=== PATIENT | female | born 1960 | race Caucasian/White ===

== ENCOUNTER 2023-05-14 16:48 | Emergency (ER) | payer BC, SELFPAY ==
[2023-05-14 17:12] VITALS: BP 129/82; PULSE 80; RESP 18; TEMP 36.8; O2SAT 97; BMI 23.6
--- NOTE | 2023-05-14 17:24 | ECG_ITS ---
[facility] Test Date: 2023-05-14 Pat Name: EZIO CEBALLOS Department: Room: - Gender: Female Medical Dosimetrist: : 1960 Requested By: Order Number: [id number] Reading MD: CYNDI MCGREGOR Measurements Intervals [place] Rate: 79 P: 44 AL: 180 QRS: 50 QRSD: 76 T: 63 QT: 378 QTc: 413 Interpretive Statements 1100 Sinus rhythm 8102 Low QRS voltage in chest leads 9120 atypical ECG No previous ECG available for comparison Electronically Signed On 05-14-2023 22:48:51 EST by CYNDI MCGREGOR
--- NOTE | 2023-05-14 17:26 | ED.GENADUL1 ---
HPI - General Adult General Chief complaint: Neuro Symptoms/Deficit Stated complaint: low calcium Time Seen by Provider: 05/14/23 17:17 Source: patient Mode of arrival: Wheelchair Limitations: physical limitation History of Present Illness HPI narrative: 62-year-old female presents for tingling to her face hands and feet. She believes it might be from hypocalcemia. Last week her calcium was 7.2. She states her calcium always runs low, she had thyroid surgery years ago. She takes a calcium supplement and was taking some extra. No fever or vomiting. Related Data Allergies Allergy/AdvReac Type Severity Reaction Status Date / Time morphine AdvReac Severe Vomiting Verified 05/14/23 17:16 Penicillins AdvReac Hives Verified 05/14/23 17:16 Review of Systems ROS Narrative A ten point review of systems is negative except as noted above. PFSH PFSH Social History Smoking status: Never smoker Exam Narrative Exam Narrative: Nurses note and vital signs reviewed and patient is not hypoxic. General: The patient appears well and in no apparent distress. Patient is resting comfortably on cart. Skin: Warm, dry, no pallor noted. There is no rash noted. Head: Normocephalic, atraumatic Eye: Normal conjunctiva, no drainage Ears, Nose, Mouth, and Throat: oral mucosa is moist. Nares patent. Cardiovascular: Regular Rate and Rhythm Respiratory: Patient is in no distress, no accessory muscle use, lungs are clear to auscultation, no wheezing, rales or rhonchi Back: non-tender GI: Soft and nontender Musculoskeletal: The patient has no evidence of calf tenderness, no pitting edema, symmetrical pulses noted bilaterally Neurological: A&O x4, normal speech Psychiatric: Cooperative Constitutional Vital Signs, click to edit/add: Last Vital Signs Temp 98.2 F 05/14/23 17:12 Pulse 80 05/14/23 17:12 Resp 18 05/14/23 17:12 BP 129/82 05/14/23 17:12 Pulse Ox 97 05/14/23 17:12 O2 Del Method Room Air 05/14/23 17:12 Course Vital Signs Vital signs: Vital Signs Temperature 98.2 F 05/14/23 17:12 Pulse Rate 80 05/14/23 17:12 Respiratory Rate 18 05/14/23 17:12 Blood Pressure 129/82 05/14/23 17:12 Pulse Oximetry 97 05/14/23 17:12 Oxygen Delivery Method Room Air 05/14/23 17:12 Temperature 98.2 F 05/14/23 17:12 Pulse Rate 80 05/14/23 17:12 Respiratory Rate 18 05/14/23 17:12 Blood Pressure 129/82 05/14/23 17:12 Pulse Oximetry 97 05/14/23 17:12 Oxygen Delivery Method Room Air 05/14/23 17:12 Medical Decision Making MDM Narrative Medical decision making narrative: The patient is hypocalcemic and was ordered IV calcium. The patient is signed out to Dr. Post at change of shift. Lab Data Lab results reviewed: Yes I reviewed the patient's lab results Labs: Lab Results 05/14/23 Range/Units 17:30 WBC 5.8 (4.0-11.0) 10^3/uL RBC 4.04 L (4.20-5.40) 10^6/uL Hgb 11.3 L (12.0-16.0) g/dL Hct 37.3 (36.0-48.0) % MCV 92.3 (81.0-99.0) fL MCH 28.0 (26.7-34.0) pg MCHC 30.3 (29.9-35.2) g/dL RDW 13.7 (11.0-15.0) % Plt Count 263 (150-450) 10^3/uL MPV 9.3 L (9.5-13.5) fL Neut % (Auto) 60.8 (43.0-75.0) % Lymph % (Auto) 27.3 (20.5-60.0) % Patrick % (Auto) 8.8 (1.7-12.0) % Eos % (Auto) 2.1 (0.9-7.0) % Baso % (Auto) 0.5 (0.2-2.0) % Neut # (Auto) 3.5 (1.4-6.5) 10^3/uL Lymph # (Auto) 1.6 (1.2-3.8) 10^3/uL Patrick # (Auto) 0.5 (0.3-0.8) 10^3/uL Eos # (Auto) 0.1 (0.0-0.7) 10^3/uL Baso # (Auto) 0.0 (0.0-0.1) 10^3/uL Abs Immat Gran (auto) 0.03 (0.00-0.03) 10^3/uL Imm/Tot Granulo (auto) 0.5 (0.0-0.5) % Sodium 145 (136-145) mmol/L Potassium 5.7 H (3.5-5.1) mmol/L Chloride 109 H (98-107) mmol/L Carbon Dioxide 30.1 (21.0-32.0) mmol/L Anion Gap 11.6 BUN 37.0 H (7.0-18.0) mg/dL Creatinine 1.89 H (0.55-1.02) mg/dL Est GFR ( Amer) 32 L (>=60) Est GFR (Non-Af Amer) 27 L (>=60) BUN/Creatinine Ratio 19.6 Glucose 139 H (74-106) mg/dL Calcium 7.5 L (8.5-10.1) mg/dL Discharge Plan Discharge Patient Disposition: Still a Patient
[2023-05-14 17:47] LABS: Basophils Percent Auto 0.5 % (0.2-2.0); Eosinophils Absolute Auto 0.1 10^3/uL (0.0-0.7); Eosinophils Percent Auto 2.1 % (0.9-7.0); Hematocrit 37.3 % (36.0-48.0); Hemoglobin 11.3 g/dL (12.0-16.0); Immature Granulocytes Abs Auto 0.03 10^3/uL (0.00-0.03); Immature Granulocytes Pct Auto 0.5 % (0.0-0.5); Lymphocytes Absolute Auto 1.6 10^3/uL (1.2-3.8); Lymphocytes Percent Auto 27.3 % (20.5-60.0); Mean Corpuscular HGB Conc 30.3 g/dL (29.9-35.2); Mean Corpuscular Volume 92.3 fL (81.0-99.0); Mean Platelet Volume 9.3 fL (9.5-13.5); Monocytes Absolute Auto 0.5 10^3/uL (0.3-0.8); Monocytes Percent Auto 8.8 % (1.7-12.0); Neutrophils Absolute Auto 3.5 10^3/uL (1.4-6.5); Neutrophils Percent Auto 60.8 % (43.0-75.0); Platelet Count 263 10^3/uL (150-450); Red Blood Count 4.04 10^6/uL (4.20-5.40); Red Cell Distribution Width 13.7 % (11.0-15.0); White Blood Count 5.8 10^3/uL (4.0-11.0)
[2023-05-14 18:03] LABS: Anion Gap 11.6; BUN Creatinine Ratio 19.6; Calcium 7.5 mg/dL (8.5-10.1); Carbon Dioxide 30.1 mmol/L (21.0-32.0); Chloride 109 mmol/L (98-107); Estimated GFR (African America 32 (>=60); Estimated GFR (Non-African Ame 27 (>=60); Glucose 139 mg/dL (74-106); Potassium 5.7 mmol/L (3.5-5.1); Sodium 145 mmol/L (136-145)
[2023-05-14] MEDS: CALCIUM GLUC IN NACL, ISO-OSM 1 GM/50 ML PLAST..BAG IV ×2 (18:33→19:04)
[2023-05-14 19:08] VITALS: BP 124/81; PULSE 71; RESP 16; O2SAT 96
[2023-05-14 19:49] LABS: Alanine Aminotransferase 52 U/L (14-59); Albumin Globulin Ratio 0.8; Albumin Level 3.1 g/dL (3.4-5.0); Alkaline Phosphatase 81 U/L (46-116); Aspartate Amino Transferase 53 U/L (15-37); Bilirubin Direct 0.1 mg/dL (0.0-0.2); Bilirubin Total 0.4 mg/dL (0.2-1.0); Globulin 3.9 g/dL
[2023-05-14 21:30] VITALS: BP 127/75; PULSE 75; RESP 16; O2SAT 99
== END 2023-05-14 21:30 | disposition home or self-care (01) ==
PROVIDERS: Emergency Medicine; Emergency Provider Internal Medicine; PCP Family Medicine
DX: E83.51 Hypocalcemia (principal); Z79.899 Other long term (current) drug therapy
CPT/HCPCS: 36415; 80048; 80076; 85025; 93005; 96365; 96366; 99284; J0613

== ENCOUNTER 2023-05-15 14:15 | Emergency (ER) | payer BC, SELFPAY ==
[2023-05-15 14:20] VITALS: BP 117/67; PULSE 83; RESP 16; TEMP 36.6; O2SAT 100; BMI 23.6
--- NOTE | 2023-05-15 14:27 | ED.MEDCLEAR1 ---
HPI - Medical Clearance General Chief complaint: Medical Clearance Stated complaint: BLOOD PROBLEMS Time Seen by Provider: 05/15/23 14:18 Source: patient Mode of arrival: walk-in Limitations: no limitations History of Present Illness HPI Narrative: Patient is a 62-year-old female with a history of thyroidectomy who takes chronic calcium supplementation presents to be reevaluated in the emergency department Cramping in her hands and tingling in her lips consistent with previous episodes of hypocalcemia. She received IV calcium supplementation in the ER with improvement of symptoms and was discharged home. She was apparently instructed by the nighttime emergency room physician to come back to the ER today for evaluation. She states she still has minimal tingling in the lips but all of her symptoms have improved since yesterday. Related Information Home Medications Medication Instructions Recorded Confirmed bupropion HCl 150 mg 24 hr tablet, 450 mg PO DAILY 05/15/23 05/15/23 extended release clonazepam 0.5 mg tablet 0.5 mg PO TID 05/15/23 05/15/23 dapagliflozin propanediol 10 mg 10 mg PO DAILY 05/15/23 05/15/23 tablet (Farxiga) lemborexant 10 mg tablet (Dayvigo) 10 mg PO BEDTIME 05/15/23 05/15/23 levothyroxine 175 mcg tablet 175 mcg PO DAILY 05/15/23 05/15/23 lisinopril 10 1 tab PO DAILY 05/15/23 05/15/23 mg-hydrochlorothiazide 12.5 mg tablet olanzapine 2.5 mg tablet 2.5 mg PO DAILY 05/15/23 05/15/23 venlafaxine 75 mg capsule,extended 75 mg PO DAILY 05/15/23 05/15/23 release 24 hr vortioxetine 20 mg tablet 20 mg PO DAILY 05/15/23 05/15/23 (Trintellix) Allergies Allergy/AdvReac Type Severity Reaction Status Date / Time morphine AdvReac Severe Vomiting Verified 05/14/23 17:16 Penicillins AdvReac Hives Verified 05/14/23 17:16 Review of Systems ROS Constitutional Denies: fever or chills Ears, nose, mouth, and throat Denies: throat pain Cardiovascular Denies: chest pain Respiratory Denies: shortness of breath Gastrointestinal Denies: nausea or vomiting Musculoskeletal Denies: back pain Integumentary/Breast Denies: rash Neurological Denies: headache Hematologic/Lymphatic Denies: easy bruising or easy bleeding PFSH PFSH Social History Smoking status: Never smoker Exam Narrative Exam Narrative: Gen.: Awake, alert, in no distress Head: Normocephalic, atraumatic ENT: Moist mucous membranes Respiratory: No respiratory distress, lungs clear bilaterally Cardio: Regular rate and rhythm Extremities: Moves extremities equally Psych: Normal mood and affect Neuro: No focal neuro deficit Skin: Warm, dry, intact Constitutional Vital Signs, click to edit/add: Last Vital Signs Temp 97.8 F 05/15/23 14:20 Pulse 83 05/15/23 14:20 Resp 16 05/15/23 14:20 BP 117/67 05/15/23 14:20 Pulse Ox 100 05/15/23 14:20 O2 Del Method Room Air 05/15/23 14:20 Course Vital Signs Vital signs: Vital Signs Temperature 97.8 F 05/15/23 14:20 Pulse Rate 83 05/15/23 14:20 Respiratory Rate 16 05/15/23 14:20 Blood Pressure 117/67 05/15/23 14:20 Pulse Oximetry 100 05/15/23 14:20 Oxygen Delivery Method Room Air 05/15/23 14:20 Temperature 97.8 F 05/15/23 14:20 Pulse Rate 83 05/15/23 14:20 Respiratory Rate 16 05/15/23 14:20 Blood Pressure 117/67 05/15/23 14:20 Pulse Oximetry 100 05/15/23 14:20 Oxygen Delivery Method Room Air 05/15/23 14:20 MDM - Medical Clearance MDM Narrative Medical decision making narrative: Repeat calcium level is 7.8. Patient is still having mild tingling of the lips and was treated again with calcium gluconate IV. Continue calcium supplementation for home and follow-up with PCP. Return to the ER only if symptoms change or worsen. Medical Records Attestation: I reviewed the patient's medical records. Lab Data Attestation: I reviewed the patient's lab results. Labs: Lab Results 05/15/23 Range/Units 14:25 Sodium 148 H (136-145) mmol/L Potassium 4.7 (3.5-5.1) mmol/L Chloride 111 H (98-107) mmol/L Carbon Dioxide 28.7 (21.0-32.0) mmol/L Anion Gap 13.0 BUN 31.0 H (7.0-18.0) mg/dL Creatinine 1.24 H (0.55-1.02) mg/dL Est GFR ( Amer) 53 L (>=60) Est GFR (Non-Af Amer) 44 L (>=60) BUN/Creatinine Ratio 25.0 Glucose 83 (74-106) mg/dL Calcium 7.8 L (8.5-10.1) mg/dL Total Bilirubin 0.3 (0.2-1.0) mg/dL AST 40 H (15-37) U/L ALT 53 (14-59) U/L Alkaline Phosphatase 86 (46-116) U/L Total Protein 6.9 (6.4-8.2) g/dL Albumin 3.1 L (3.4-5.0) g/dL Globulin 3.8 g/dL Albumin/Globulin Ratio 0.8 Discharge Plan Discharge Chief Complaint: Medical Clearance Clinical Impression: Hypocalcemia Patient Disposition: Home, Self-Care Time of Disposition Decision: 15:00 Condition: Good Prescriptions / Home Meds: No Action bupropion HCl 150 mg tablet extended release 24 hr 450 mg PO DAILY clonazepam 0.5 mg tablet 0.5 mg PO TID dapagliflozin propanediol [Farxiga] 10 mg tablet 10 mg PO DAILY Dayvigo 10 mg tablet 10 mg PO BEDTIME levothyroxine 175 mcg tablet 175 mcg PO DAILY lisinopril-hydrochlorothiazide 10-12.5 mg tablet 1 tab PO DAILY venlafaxine 75 mg capsule,extended release 24hr 75 mg PO DAILY Trintellix 20 mg tablet 20 mg PO DAILY olanzapine 2.5 mg tablet 2.5 mg PO DAILY Instructions: Hypocalcemia (ED) Stand Alone Forms: Portal Instructions Referrals: LUCIA HUITRON [Primary Care Provider] - 1 week
--- OUTSIDE RECORDS SUMMARY | 2023-05-15 14:29 | XMS_ITS | CCD ---
Author Name Unknown Address [address] [place] [address] Organization [facility] Care Team Providers Care 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 Name Role Phone NIVIA ROSE Admitting Unavailable MILTON, NIVIA Attending Unavailable MISC, DOCTOR Primary Care Unavailable MILTONNIVIA JUAREZ Admitting Unavailable MILTON, NIVIA Attending Unavailable NIVIA ROSE Consulting Unavailable Val Campuzano Unavailable Lei Wells Unavailable DO Severiano Huitron Primary Care Provider [phone] MD Elizabeth Arora Attending Provider Elizabeth Arora Unavailable Severiano Huitron Primary Care Unavailable Will Jackson Attending Unavailab Will Smiley Admitting Unavailab Severiano Julian DO Primary Care Provider [phone] Neeta Fatima DO Unavailable EDWIN RODRIGUEZ Attending Unavailable EDWIN RODRIGUEZ Attending Unavailable SEVERIANO HUITRON Referring Unavailable Allergies Allergy Classification Reported Allergen(s) Allergy Type Date of Onset Reaction(s) Facility (20 sources) Morphine Drug Allergy 11-06-19 18 GI intolerance, Itching, Rash [facility] (19 sources) Penicillin G Drug Allergy 05-13-19 24 Unknown, Abdominal Pain [facility] (19 sources) Penicillins Propensity to adverse reactions 05-13-19 24 Unknown, Abdominal Pain [facility] (17 sources) zolpidem Drug Allergy 05-13-19 24 depression [facility] (1 source) Morphine Drug Allergy 10-10-19 [facility] (1 source) Penicillin Drug Allergy 10-10-19 [facility] (1 source) Penicillins Drug allergy (disorder) 10-10-19 [facility] (1 source) zolpidem Drug Allergy 10-10-19 [facility] (1 source) Meperidine Drug Allergy 01-08-20 [facility] (1 source) Penicillins Drug Allergy 11-06-19 18 Rash [facility] (1 source) Propoxyphene Drug Allergy 01-08-20 [facility] Medications Current Medications Medication Drug Class(es) Dates Sig (Normalized) Sig (Original) acetaminophen 325 mg oral tablet (1 source) take 1 tablet by mouth every four hours as needed acetaminophen (Tylenol) 325 MG tablet Take 325 mg by mouth every 4 (four) hours if needed. 0 Active 24 hr buPROPion hydrochloride 150 mg extended release oral tablet (20 sources) Aminoketone Start: 05-13-2023 take 1 tablet by mouth once daily in the morning Bupropion Hcl (Wellbutrin Xl) 150 mg tablet extended release 24 hr Active 150 MG PO Daily May 13, 2023 12:00am FreeTextSi tablet in the morning Orally Once a day; Note: Source Status: Taking; Refills: 0; Provider: Russell Odom take 1 tablet by caroline th every twenty-four hours in the morning buPROPion XL (Wellbutrin XL) 150 MG 24 h r tablet Take 150 mg by mouth in the morning. 0 Active take 1 tablet by caroline th every twenty-four hours in the morning buPROPion XL (Wellbutrin XL) 300 MG 24 h r tablet Take 300 mg by mouth in the morning. 0 Active take 1 tablet by caroline th every twenty-four hours Wellbutrin XL 150 MG 1 tablet in the morning Orally Once a day for 90 days Active take 1 tablet by caroline th every twenty-four hours Wellbutrin XL 300 MG 1 tablet in the morning Orally Once a day for 90 days Active calcium carbonate 1500 mg oral tablet (1 source) take 2 tablets by mouth in the morning, then take 2 tablets by mouth in the evening, then take 2 tablets by mouth at bedtime calcium carbonate 1500 (600 Ca) MG tablet Take 2 tablets by mouth in the morning and 2 tablets in the evening and 2 tablets before bedtime. 0 Active calcium carbonate 1500 mg / cholecalciferol 200 unt oral tablet (19 sources) Vitamin D Start: 05-13-2023 take 1 tablet by mouth twice daily Calcium Carbonate-Vitamin D3 Active 1 TAB PO Twice daily May 13, 2023 12:00am FreeTextSi tablet Orally Twice a day; Note: Source Status: Taking; Provider: Maite Johnson ( ) take 1 tablet by mouth twice odilon ly Calcium + D 600-200 MG-UNIT 1 tablet Orally Twice a day Active take 1 tablet by mouth every twe lve hours Calcium + D 600-200 MG-UNIT 1 tablet Orally Twice a day Active clonazePAM 0.5 mg oral tablet (20 sources) Benzodiazepine Start: 05-13-2023 take 1.5 tablets by mouth once daily Clonazepam Active 1.5 TAB PO Daily May 13, 2023 12:00am FreeTextSi.5 tablet Orally Once a day; Note: Source Status: [id number]; Refills: 0; Provider: Russell Odom Start: 10-01-2021 take 1.5 tablets by mouth every twenty-four hours KlonoPIN 0.5 MG 1.5 tablet Orally Once a day for 90 days f41.1 Sep, Active Start: 09-03-2021 take 1.5 tablets by mouth every twenty-four hours KlonoPIN 0.5 MG 1.5 tablet Orally Once a day for 30 days f41.1 Aug, Active Start: 08-02-2021 take 1.5 tablets by mouth every twenty-four hours KlonoPIN 0.5 MG 1.5 tablet Orally Once a day for 30 days f41.1 July, Active Start: 06-06-2021 take 1.5 tablets by mouth every twenty-four hours KlonoPIN 0.5 MG 1.5 tablet Orally Once a day for 30 days f41.1 May, Active Start: 05-23-2021 take 1.5 tablets by mouth every twenty-four hours KlonoPIN 0.5 MG 1.5 tablet Orally Once a day for 30 days f41.1 May, Active Start: 04-12-2021 take 1.5 tablets by mouth every twenty-four hours KlonoPIN 0.5 MG 1.5 tablet Orally Once a day for 30 days f41.1 Mar, Active Start: 03-05-2021 take 1.5 tablets by mouth every twenty-four hours KlonoPIN 0.5 MG 1.5 tablet Orally Once a day for 30 days f41.1 Feb, Active Start: 02-06-2021 take 1.5 tablets by mouth every twenty-four hours KlonoPIN 0.5 MG 1.5 tablet Orally Once a day for 30 days f41.1 Jan, Active Start: 12-07-2020 take 1.5 tablets by mouth every twenty-four hours KlonoPIN 0.5 MG 1.5 tablet Orally Once a day for 30 days f41.1 Nov, Active take 1 tablet by caroline th in the morning, then take 1 tablet by mouth in the evening, then take 1 tablet by mouth at bedtime clonazePAM (KlonoPIN) 0.5 MG tablet Take 0.5 mg by mouth in the morning and 0.5 mg in the evening and 0.5 mg before bedtime. 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 90 tablet 3 01/17/2023 Active Farxiga 10 MG Or ally Active dexamethasone phosphate 4 mg/ml injectable solution (2 sources) Corticosteroid Start: 05-13-2023 Dexamethasone Sodium Phosphate Active 2 MG TRANSDERML May 13, 2023 12:00am FreeTextSi mL Iontophoresis 2-3 x per week as directed by therapy; Note: Source Status: Start; Refills: 0; Qty: 30 Milliliter; Provider: Maite Brewer Start: 10-09-2022 Dexamethasone Sodium Phosphate 4 MG/ML 1 mL Iontophoresis 2-3 x per week as directed by therapy for 30 days Sep, Active ferrous sulfate 325 mg oral tablet (19 sources) Start: 07-12-2019 Ferrous Sulfat e CR 325 MG as directed Orally once a day for 30 days Jun, Active take 1 tablet by mouth at [place] ferrous sulfate 325 (65 Fe) MG tablet Take 325 mg by mouth in the morning. Take with meals. 0 Active hydroCHLOROthiazide 12.5 mg / lisinopril 10 mg oral tablet (20 sources) Thiazide Diuretic, Angiotensin Converting Enzyme Inhibitor Start: 05-13-2023 take 1 tablet by mouth once daily Lisinopril-Hydrochlorothiazide Active 1 TAB PO Daily May 13, 2023 12:00am FreeTextSi tablet Orally Once a day; Note: Source Status: Taking; Provider: Maite Johnson ( ) Start: 02-27-2023 End: 02-27-2024 take 1 tablet by mouth in the morning lisinopril-hydroCHLOROthiazide 10-12.5 M G tablet Indications: Primary hypertension (CMS/HCC) Take 1 tablet by mouth in the morning. 30 tablet 11 02/27/2023 02/27/2024 Active take 1 tablet by caroline th every twenty-four hours Lisinopril-hydroCHLOROthiazide 10-12.5 M G 1 tablet Orally Once a day Active lemborexant 10 mg oral tablet (19 sources) Start: 10-01-2021 take 1 tablet by caroline th every twenty-four hours DayVigo 10 MG 1 tablet at bedtime Orally Once a day for 90 days g47.0 Sep, Active Start: 09-03-2021 take 1 tablet by caroline th every twenty-four hours DayVigo 10 MG 1 tablet at bedtime Orally Once a day for 30 days g47.0 Aug, Active Start: 08-02-2021 take 1 tablet by caroline th every twenty-four hours DayVigo 10 MG 1 tablet at bedtime Orally Once a day for 30 days g47.0 July, Active Start: 06-06-2021 take 1 tablet by caroline th every twenty-four hours DayVigo 10 MG 1 tablet at bedtime Orally Once a day for 30 days g47.0 May, Active Start: 05-23-2021 take 1 tablet by caroline th every twenty-four hours DayVigo 10 MG 1 tablet at bedtime Orally Once a day for 30 days g47.0 May, Active Start: 04-12-2021 take 1 tablet by caroline th every twenty-four hours DayVigo 10 MG 1 tablet at bedtime Orally Once a day for 30 days g47.0 Mar, Active Start: 03-05-2021 take 1 tablet by caroline th every twenty-four hours DayVigo 10 MG 1 tablet at bedtime Orally Once a day for 30 days g47.0 Feb, Active Start: 02-06-2021 take 1 tablet by caroline th every twenty-four hours DayVigo 10 MG 1 tablet at bedtime Orally Once a day for 30 days g47.0 Jan, Active Start: 12-07-2020 take 1 tablet by caroline th every twenty-four hours DayVigo 10 MG 1 tablet at bedtime Orally Once a day for 30 days g47.0 Nov, Active Lemborexant (1 source) Start: 05-13-2023 take 1 tablet by mouth once daily at bedtime Lemborexant Active 10 MG PO Daily at bedtime May 13, 2023 12:00am FreeTextSi tablet at bedtime Orally Once a day; Note: Source Status: Rlpaxsw02.0; Refills: 0; Provider: Russell Odom levothyroxine sodium 0.175 mg oral tablet (20 sources) l-Thyroxi ne Start: 05-13-2023 take 1 tablet by mouth once daily Levothyroxine (Synthroid) 175 mcg tablet Active 175 MCG PO Daily May 13, 2023 12:00am FreeTextSi tablet Orally Once a day; Note: Source Status: Taking; Provider: Maite Johnson ( ) Start: 10-07-2022 take 1 tablet by caroline th once daily in the morning levothyroxine (Synthroid, Levoxyl) 175 MCG tablet Indications: Other specified hypothyroidism (CMS/HCC) TAKE 1 TABLET BY MOUTH EVERY MORNING ON AN EMPTY STOMACH 90 tablet 3 10/07/2022 Active take 1 tablet by caroline th every twenty-four hours Synthroid 175 MCG 1 tablet Orally Once a day Active lidocaine 0.05 mg/mg medicated patch (1 source) Antiarrhythmic, Amide Local Anesthetic Start: 05-13-2023 apply 1 dose topically once daily Lidocaine Active 1 PATCH TOPICAL Daily May 13, 2023 12:00am leave on most painful area for up to 12 hrs liraglutide (18 sources) GLP-1 Receptor Agonist Victoza 18mg/3ml injection as directed 1.2 Active Mounjaro 5 MG/0.5ML solution pen-injector (1 source) Start: 01-17-2023 Mounjaro 5 MG/0.5ML solution pen-injector Indications: 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 6 mL 3 01/17/2023 Active naproxen 375 mg delayed release oral tablet (6 sources) Nonsteroidal Anti-inflammatory Drug Start: 05-13-2023 take 1 tablet by mouth every twelve hours Naproxen (Ec-Naproxen) 375 mg tablet,delayed release (DR/EC) Active 375 MG PO Every 12 hours May 13, 2023 12:00am Naproxen takes r vishal due to bypass sx Not-Taking nystatin [id number] unt/ml / triamcinolone acetonide 1 mg/ml topical cream (1 source) Polyene Antifungal, Corticosteroid Start: 09-10-2022 nystatin-triamcinolone (Mycolog II) cream Indications: Type 2 diabetes mellitus with diabetic polyneuropathy, without long-term current use of insulin ([facility]) Apply topically every 12 (twelve) hours. 15 g 3 09/10/2022 Active OLANZapine 2.5 mg oral tablet (20 sources) Atypical Antipsychotic Start: 05-13-2023 take 0.5 tablet by mouth once daily Olanzapine Active 2.5 MG PO Daily May 13, 2023 12:00am FreeTextSi/2 tablet Orally Once a day; Note: Source Status: Taking; Refills: 0; Provider: Russell Odom take 1 tablet by mouth at bedtim e OLANZapine (ZyPREXA) 2.5 MG tablet Take 1 tablet by mouth at bedtime. 0 Active take 0.5 tablet by mouth once da aida OLANZapine 2.5 MG 1/2 tablet Orally Once a day for 90 days Active predniSONE 5 mg oral tablet (2 sources) Start: 05-13-2023 Prednisone Act alley 2.5 MG PO May 13, 2023 12:00am FreeTextSig: TAKE 4 PILLS BY MOUTH X 2 DAYS, TAKE 3 PILLS BY MOUTH X 2 DAYS, TAKE 2 PILLS BY MOUTH X 2 DAYS, TAKE 1 PILL BY MOUTH X 1 DAY Orally Daily; Note: Source Status: Start; Refills: 0; Qty: 19 Tablet; Provider: Maite Brewer Start: 10-09-2022 predniSONE 5 M G TAKE 4 PILLS BY MOUTH X 2 DAYS, TAKE 3 PILLS BY MOUTH X 2 DAYS, TAKE 2 PILLS BY MOUTH X 2 DAYS, TAKE 1 PILL BY MOUTH X 1 DAY Orally Daily for 7 days Sep, Active 24 hr venlafaxine 75 mg extended release oral capsule (20 sources) Serotonin and Norepinephrine Reuptake Inhibitor Start: 05-13-2023 take 1 capsule by mouth once daily at mealtime Venlafaxine (Effexor Xr) 75 mg capsule,extended release 24hr Active 75 MG PO Daily May 13, 2023 12:00am FreeTextSi capsule with food Orally Once a day; Note: Source Status: Taking; Refills: 0; Provider: Russell Odom take 1 capsule by [facility] every twenty-four hours in the morning venlafaxine XR (Effexor XR) 75 MG 24 hr capsule Take 75 mg by mouth in the morning. Do not crush or chew. . 0 Active take 1 capsule by mo uth every twenty-four hours Effexor XR 75 MG 1 capsule with food Orally Once a day for 90 days Active verapamil hydrochloride 80 mg oral tablet (19 sources) Calcium Channel Ofe take 1 tablet by mouth in the morning verapamil (Calan) 80 MG tablet Take 80 mg by mouth in the morning and 80 mg in the evening. 0 Active vortioxetine 20 mg oral tablet (20 sources) Start: take 1 tablet by mouth once daily Vortioxetine Active 1 TAB PO Daily May 13, 2023 12:00am FreeTextSi tablet Orally Once a day; Note: Source Status: Taking; Refills: 0; Provider: Russell Odom take 1 tablet by mouth once judson y Trintellix 20 MG tablet Take 1 tablet by mouth 1 (one) time each day at the same time. 0 Active Completed/Discontinued Medications Medication Drug Class(es) Dates Sig (Normalized) Sig (Original) Cortisporin 3.3-3-10-0.5 mg/ml (13 sources) Start: 01-30-2020 Cortisporin 3.3-3-10-0.5 mg/ml 4 drops into affected ear Otic Twice a day for 7 days Jan, Not-Taking Start: 01-30-2020 Cortisporin 3. 3-3-10-0.5 mg/ml 4 drops into affected ear Otic Twice a day for 7 days Jan, Active Start: 01-30-2020 triamcinolone acetonide 40 mg/ml injectable suspension (20 sources) Corticosteroid Start: 01-02-2022 Kenalog-40 Dec, 20 mg Start: 10-29-2016 Kenalog -40 mg Oct, 1 mL Problems Active Problems Problem Classification Problem Date Documented Date Episodic/Chronic Anxiety disorders (20 sources) Anxiety state; Translations: [Generalized anxiety disorder] Onset: 03-24-2017 09-03-2022 Chronic Chronic kidney disease (19 sources) Chronic kidney disease stage 3; Translations: [Chronic kidney disease, stage 3 (moderate)] Onset: 07-03-2015 09-03-2022 Chronic Complications of surgical procedures or medical care (19 sources) Postoperative hypothyroidism; Translations: [Postprocedural hypothyroidism] Onset: 06-20-2016 09-03-2022 Chronic Complications of surgical procedures or medical care (18 sources) Postoperative wound infection; Translations: [Infection following a procedure, initial encounter] Episodic Diabetes mellitus with complications (20 sources) Type 2 diabetes mellitus; Translations: [Type 2 diabetes mellitus with mild nonproliferative diabetic retinopathy without macular edema] Onset: 03-03-2015 Resolved: 01-17-2023 09-03-2022 Chronic Diabetes mellitus without complication (1 source) Diabetes mellitus; Translations: [Type 2 diabetes mellitus without complications] 05-13-2023 Chronic Headache; including migraine (19 sources) Refractory migraine; Translations: [Migraine, unspecified, intractable, without status migrainosus] Onset: 09-03-2022 09-03-2022 Chronic Immunizations and screening for infectious disease (4 sources) Encounter for screening for other viral diseases; Translations: [ENC SCREENING FOR OTH VIRAL DZ] Onset: 12-01-2019 Episodic Miscellaneous mental health disorders (18 sources) Primary insomnia; Translations: [Primary insomnia] Chronic Mood disorders (20 sources) Moderate recurrent major depression; Translations: [Major depressive disorder, recurrent, moderate] Onset: 02-06-2021 Resolved: 09-03-2021 Chronic Osteoarthritis (20 sources) Osteoarthritis of left knee joint; Translations: [Unilateral primary osteoarthritis, left knee] Onset: 08-21-2017 Chronic Other connective tissue disease (19 sources) History of total knee arthroplasty; Translations: [Presence of left artificial knee joint] Onset: 09-03-2022 09-03-2022 Chronic Other connective tissue disease (1 source) Artificial knee joint present; Translations: [Presence of unspecified artificial knee joint] Onset: 12-08-2017 09-03-2022 Chronic Other connective tissue disease (5 sources) Radial styloid tenosynovitis [de Quervain]; Translations: [Radial styloid tenosynovitis of both hands] Episodic Other connective tissue disease (3 sources) Pain in left hand Episodic Other connective tissue disease (3 sources) Pain in right hand Episodic Other ear and sense organ disorders (1 source) Sensorineural hearing loss, bilateral; Translations: [Sensorineural hearing loss, bilateral] Onset: 02-16-2020 09-03-2022 Chronic Other nervous system disorders (19 sources) Chronic pain; Translations: [Other chronic pain] Onset: 08-21-2017 09-03-2022 Chronic Other upper respiratory disease (1 source) Chronic rhinitis; Translations: [Chronic rhinitis] Onset: 02-16-2020 09-03-2022 Chronic Other upper respiratory infections (18 sources) Acute sinusitis; Translations: [Acute sinusitis] Episodic Residual codes; unclassified (18 sources) Preoperative state; Translations: [Pre-operative examination] Episodic Residual codes; unclassified (18 sources) Insomnia; Translations: [Insomnia, unspecified] Episodic Thyroid disorders (20 sources) Hypothyroidism; Translations: [Unspecified hypothyroidism] Onset: 06-01-2010 09-03-2022 Chronic Past or Other Problems Problem Classification Problem Date Documented Da te Episodic/Chronic Other ear and sense organ disorders (1 source) Bilateral earache; Translations: [Otalgia, bilateral] Onset: 09-03-2022 09-03-2022 Episodic Results Test Name Value Interpretation Reference Range Facil ity Complete Blood Count with Au to Diffon 05-21-2021 Basophils (Bld) [#/Vol] 0.05 10*3/uL Normal 0.00-0.20 [facility] Specialist Comment on above: Performed By: #### C BCAD, CMP, LIPD, FT4, TSH #### [facility] [address], [place] [id number] Basophils/100 WBC (Bld) 0.7 % Normal [facility] [employer] Teacher Comment on above: Performed By: #### C BCAD, CMP, LIPD, FT4, TSH #### [facility] [address], [place] [id number] Eosinophils (Bld) [#/Vol] 0.23 10*3/uL Normal 0.02-0.50 [facility] Specialist Comment on above: Performed By: #### C BCAD, CMP, LIPD, FT4, TSH #### [facility] [address], [place] [id number] Eosinophils/100 WBC (Bld) 3.2 % Normal [facility] [employer] Teacher Comment on above: Performed By: #### C BCAD, CMP, LIPD, FT4, TSH #### [facility] [address], [place] [id number] Erythrocyte distribution width (RBC) [Ratio] 13.6 % Normal 11.0-15.0 [facility] Specialist Comment on above: Performed By: #### C BCAD, CMP, LIPD, FT4, TSH #### [facility] [address], [place] [id number] Hematocrit (Bld) [Volume fraction] 44.7 % Normal 35.0-47.0 [facility] Specialist Comment on above: Performed By: #### C BCAD, CMP, LIPD, FT4, TSH #### [facility] [address], [place] [id number] Hemoglobin (Bld) [Mass/Vol] 13.9 g/dL Normal 11.6-15.5 [facility] Specialist Comment on above: Performed By: #### C BCAD, CMP, LIPD, FT4, TSH #### [facility] [address], [place] [id number] Lymphocytes (Bld) [#/Vol] 1.2 10*3/uL Normal 0.9-3.9 [facility] Specialist Comment on above: Performed By: #### C BCAD, CMP, LIPD, FT4, TSH #### [facility] [address], [place] [id number] Lymphocytes/100 WBC (Bld) 16.2 % Normal [facility] Specialist Comment on above: Performed By: #### C BCAD, CMP, LIPD, FT4, TSH #### [facility] [address], [place] [id number] MCH (RBC) [Entitic mass] 27.3 pg Normal 27.0-33.0 [facility] Specialist Comment on above: Performed By: #### C BCAD, CMP, LIPD, FT4, TSH #### [facility] [address], [place] [id number] MCHC (RBC) [Mass/Vol] 31.1 g/dL Low 32.0-36.0 [facility] Specialist Comment on above: Performed By: #### C BCAD, CMP, LIPD, FT4, TSH #### [facility] [address], [place] [id number] MCV (RBC) [Entitic vol] 88 fL Normal 80-100 [facility] Specialist Comment on above: Performed By: #### C BCAD, CMP, LIPD, FT4, TSH #### [facility] [address], [place] [id number] Monocytes (Bld) [#/Vol] 0.4 10*3/uL Normal 0.2-0.9 [facility] Specialist Comment on above: Performed By: #### C BCAD, CMP, LIPD, FT4, TSH #### [facility] [address], [place] [id number] Monocytes/100 WBC (Bld) 6.1 % Normal [facility] Specialist Comment on above: Performed By: #### C BCAD, CMP, LIPD, FT4, TSH #### [facility] [address], [place] [id number] Neutrophils (Bld) [#/Vol] 5.3 10*3/uL Normal 1.5-7.8 [facility] Comment on above: Performed By: #### C BCAD, CMP, LIPD, FT4, TSH #### [facility] [address], [place] [id number] Neutrophils/100 WBC (Bld) 73.5 % Normal [facility] Specialist Comment on above: Performed By: #### C BCAD, CMP, LIPD, FT4, TSH #### [facility] [address], [place] [id number] Platelet mean volume (Bld) [Entitic vol] 9.90 fL Normal 7.50-12.50 [facility] Specialist Comment on above: Performed By: #### C BCAD, CMP, LIPD, FT4, TSH #### [facility] [address], [place] [id number] Platelets (Bld) [#/Vol] 311 10*3/uL Normal 140-400 [facility] Specialist Comment on above: Performed By: #### C BCAD, CMP, LIPD, FT4, TSH #### [facility] [address], [place] [id number] RBC (Bld) [#/Vol] 5.10 10*6/uL Normal 3.90-5.20 [facility] Comment on above: Performed By: #### C BCAD, CMP, LIPD, FT4, TSH #### [facility] [address], [place] [id number] RDW-SD 43.8 fL Normal 37.0-50.0 [facility] Specialist Comment on above: Performed By: #### C BCAD, CMP, LIPD, FT4, TSH #### [facility] [address], [place] [id number] WBC (Bld) [#/Vol] 7.2 10*3/uL Normal 3.8-11.0 [facility] Comment on above: Performed By: #### C BCAD, CMP, LIPD, FT4, TSH #### [facility] [address], [place] [id number] Comprehensive Metabolic Pane jamila 05-21-2021 Albumin [Mass/Vol] 4.5 g/dL Normal 3.6-5.1 [facility] Comment on above: Performed By: #### C BCAD, CMP, LIPD, FT4, TSH #### [facility] [address], [place] [id number] Albumin/Globulin [Mass ratio] 2.0 {ratio} Normal 1.0-2.5 [facility] Comment on above: Performed By: #### C BCAD, CMP, LIPD, FT4, TSH #### [facility] [address], [place] [id number] ALP [Catalytic activity/Vol] 111 U/L Normal 35-119 [facility] Comment on above: Performed By: #### C BCAD, CMP, LIPD, FT4, TSH #### [facility] [address], [place] [id number] ALT [Catalytic activity/Vol] 28 U/L Normal 6-33 [facility] Comment on above: Result Comment: 02/21 Female reference range changed. Performed By: #### C BCAD, CMP, LIPD, FT4, TSH #### [facility] [address], [place] [id number] Anion gap [Moles/Vol] 18 mmol/L Normal 12-20 [facility] Comment on above: Result Comment: Effe ctive 03/29/2019 reference range changed. Performed By: #### C BCAD, CMP, LIPD, FT4, TSH #### [facility] [address], [place] [id number] AST [Catalytic activity/Vol] 25 U/L Normal 9-34 [facility] Comment on above: Performed By: #### C BCAD, CMP, LIPD, FT4, TSH #### [facility] [address], [place] [id number] BUN/CREA 29 Ratio High 6-22 [facility] Specialist Comment on above: Performed By: #### C BCAD, CMP, LIPD, FT4, TSH #### [facility] [address], [place] [id number] Calcium [Mass/Vol] 7.8 mg/dL Low 8.6-10.2 [facility] Comment on above: Performed By: #### C BCAD, CMP, LIPD, FT4, TSH #### [facility] [address], [place] [id number] Chloride [Moles/Vol] 101 mmol/L Normal 98-107 [facility] Comment on above: Performed By: #### C BCAD, CMP, LIPD, FT4, TSH #### [facility] [address], [place] [id number] CO2 [Moles/Vol] 25 mmol/L Normal 20-31 [facility] Specialist Comment on above: Performed By: #### C BCAD, CMP, LIPD, FT4, TSH #### [facility] [address], [place] [id number] Creatinine [Mass/Vol] 1.0 mg/dL Normal 0.6-1.4 [facility] Comment on above: Performed By: #### C BCAD, CMP, LIPD, FT4, TSH #### [facility] [address], [place] [id number] eGFRAA 69 mL/min/1.73m2 Normal >60 [facility] Specialist Comment on above: Performed By: #### C BCAD, CMP, LIPD, FT4, TSH #### [facility] [address], [place] [id number] eGFRNAA 57 mL/min/1.73m2 Low >60 [facility] Specialist Comment on above: Performed By: #### C BCAD, CMP, LIPD, FT4, TSH #### [facility] [address], [place] [id number] Globulin (S) [Mass/Vol] 2.2 g/dL Normal 1.9-3.7 [facility] Comment on above: Performed By: #### C BCAD, CMP, LIPD, FT4, TSH #### [facility] [address], [place] [id number] Glucose [Mass/Vol] 177 mg/dL High 65-99 Nadira r[facility] [place] [employer] Comment on above: Result Comment: For FASTING Glucose --- ADA reference ranges: Normal 65-99 mg/dl Prediabetes 100-125 Diabetes >/= 126 Performed By: #### C BCAD, CMP, LIPD, FT4, TSH #### [facility] [address], [place] [id number] Potassium [Moles/Vol] 4.9 mmol/L Normal 3.5-5.5 [facility] [employer] Comment on above: Performed By: #### C BCAD, CMP, LIPD, FT4, TSH #### [facility] [address], [place] [id number] Protein [Mass/Vol] 6.7 g/dL Normal 6.1-8.1 Nadira r[facility] [place] [employer] Comment on above: Performed By: #### C BCAD, CMP, LIPD, FT4, TSH #### [facility] [address], [place] [id number] Sodium [Moles/Vol] 139 mmol/L Normal 135-146 Nadira rn [place] [employer] Comment on above: Performed By: #### C BCAD, CMP, LIPD, FT4, TSH #### [facility] [address], [place] [id number] TBIL <0.3 Normal [facility] [employer] Comment on above: Performed By: #### C BCAD, CMP, LIPD, FT4, TSH #### [facility] [address], [place] [id number] Urea nitrogen [Mass/Vol] 28 mg/dL High 7-25 [facility] [employer] Comment on above: Performed By: #### C BCAD, CMP, LIPD, FT4, TSH #### [facility] [address], [place] [id number] Free T4on 05-21-2021 Free T4 [Mass/Vol] 1.31 ng/dL Normal 0.80-1.80 [place] [employer] Comment on above: Performed By: #### C BCAD, CMP, LIPD, FT4, TSH #### [facility] [address], [place] [id number] Hemoglobin A1Con 05-21-2021 EAG 200.12 Normal [facility] [employer] Teacher Comment on above: Performed By: #### A 1C #### [facility] [address], [place] [id number] HbA1c (Bld) [Mass fraction] 8.6 % High 4.0-6.0 [facility] [employer] Comment on above: Performed By: #### A 1C #### [facility] [address], [place] [id number] Lipid Panelon 05-21-2021 Cholesterol [Mass/Vol] 218 mg/dL High 125-200 [facility] [employer] Teacher Comment on above: Result Comment: Low risk < 200mg/dL Borderline risk 201-239 mg/dl High risk > or equal to 240 Performed By: #### C BCAD, CMP, LIPD, FT4, TSH #### [facility] [address], [place] [id number] Cholesterol in HDL [Mass/Vol] 85 mg/dL Normal >40 [facility] [employer] Teacher Comment on above: Result Comment: High Cardiovascular Risk HDL <40 mg/dL Low Cardiovascular Risk HDL > or equal to 60 mg/dl Performed By: #### C BCAD, CMP, LIPD, FT4, TSH #### [facility] [address], [place] [id number] Cholesterol in LDL [Mass/Vol] 116 mg/dL Normal [facility] [employer] Teacher Comment on above: Result Comment: LDL ATP III CLASSIFICATION LDL less than 100 mg/dl Optimal LDL 100-129 mg/dl Near or above optimal LDL 130-159 Borderline high LDL 160-189 High LDL greater than 189 mg/dl Very High Performed By: #### C BCAD, CMP, LIPD, FT4, TSH #### [facility] [address], [place] [id number] Cholesterol in VLDL [Mass/Vol] 17 mg/dL Normal [facility] [employer] Teacher Comment on above: Performed By: #### C BCAD, CMP, LIPD, FT4, TSH #### [facility] [address], [place] [id number] Cholesterol.total/C holesterol in HDL [Mass ratio] 3 {ratio} Normal [facility] [employer] Teacher Comment on above: Performed By: #### C BCAD, CMP, LIPD, FT4, TSH #### [facility] [address], [place] [id number] Triglyceride [Mass/Vol] 84 mg/dL Normal 30-150 [facility] [employer] Teacher Comment on above: Result Comment: TRIG ATPIII CLASSIFICATIONS TRIG less than 150 mg/dl Normal TRIG 150-199 mg/dl Borderline High TRIG 200-500 mg/dl High TRIG greather than 500 mg/dl Very High Performed By: #### C BCAD, CMP, LIPD, FT4, TSH #### [facility] [address], [place] [id number] TSHon 05-21-2021 TSH 2.140 uIU/mL Normal 0.400-4.500 [facility] [employer] Teacher Comment on above: Performed By: #### C BCAD, CMP, LIPD, FT4, TSH #### [facility] [address], [place] [id number] COVID-19 PCRon 12-02-2019 SARS-CoV-2, KYLIE Not Detected Normal Not Detected [facility] Comment on above: Result Comment: This nucleic acid amplification test was developed and its performance characteristics determined by [employer]. Nucleic acid amplification tests include PCR and TMA. This test has not been FDA cleared or approved. This test has been authorized by FDA under an Emergency Use Authorization (EUA). This test is only authorized for the duration of time the declaration that circumstances exist justifying the authorization of the emergency use of in vitro diagnostic tests for detection of SARS-CoV-2 virus and/or diagnosis of COVID-19 infection under section 564(b)(1) of the Act, 21 U.S.C. 360bbb-3(b) (1), unless the authorization is terminated or revoked sooner. When diagnostic testing is negative, the possibility of a false negative result should be considered in the context of a patient's recent exposures and the presence of clinical signs and symptoms consistent with COVID-19. An individual without symptoms of COVID-19 and who is not shedding SARS-CoV-2 virus would expect to have a negative (not detected) result in this assay. Performed By: #### C VDPCR #### [facility] [place] [address] [id number] Jolie Finley Vital Signs Date Time Vital Sign Value Performing Clinician Roula felipe 10-09-2022 09:45-0400 Body height 157.48 cm Elizabeth Arora Other [facility] [employer] Other 01-02-2022 09:00-0400 Body height 157.48 cm Elizabeth Arora Other [facility] Other 01-02-2022 09:00-0400 Body mass index (BMI) [Ratio] 30.54 kg/m2 Elizabeth Arora Other [facility] Other 01-02-2022 09:00-0400 Body weight 75.75 kg Elizabeth Arora Other [employer] [facility] [employer] Other Encounters Encounter Date Encounter Type Care Provider Facility Start: 05-13-2023 End: 05-13-2023 ambulatory [facility] Work Phone: Start: 05-13-2023 End: 05-13-2023 Patient encounter procedure [facility] Work Phone: Start: 05-06-2023 End: 05-06-2023 ambulatory EDWIN L CUTLER Not Available Start: 05-06-2023 Bamboo flowsheet Edwin L Cut ler DO Work Phone: [facility] Start: 05-06-2023 Bamboo flowsheet Edwin L Cut ler DO Work Phone: [facility] Start: 03-06-2023 End: 03-06-2023 ambulatory EDWIN L CUTLER Not Available Start: 11-14-2022 ambulatory Severiano Huitron Facility:[facility] Start: 10-09-2022 End: 10-09-2022 ambulatory Elizabeth Arora Other [employer] Other Start: 10-09-2022 Office outpatient vi sit 15 minutes Elizabethmaurilio Arora [facility] [place] [facility] Start: 04-30-2022 End: 04-30-2022 ambulatory Val Campuzano Other [employer] Other Start: 04-30-2022 Telephone encounter Val Campuzano [facility] [place] Start: 03-25-2022 End: 03-25-2022 ambulatory Elizabeth Arora Other [employer] [facility] [employer] Other Start: 03-25-2022 Encounter by compute r link Elizabeth Arora [facility] [place] [facility] Start: 01-30-2022 End: 01-30-2022 ambulatory Elizabeth Arora Other [employer] Other Start: 01-30-2022 Office outpatient vi sit 15 minutes Elizabethmaurilio Arora [facility] [place] [facility] Start: 01-02-2022 Office outpatient ne w 30 minutes Elizabethmaurilio Arora [facility] [place] [facility] Start: 01-02-2022 End: 01-02-2022 ambulatory DO Severiano Huitron Work Phone: [facility] Work Phone: Start: 01-02-2022 End: 01-02-2022 Patient encounter procedure DO Severiano Huitron Work Phone: [facility] [place] [facility] Start: 12-27-2021 End: 12-27-2021 ambulatory Val Campuzano Other [employer] Other Start: 12-27-2021 Telephone encounter Val Campuzano [facility] [place] Start: 12-18-2021 End: 12-18-2021 ambulatory Val Campuzano Other [employer] Other Start: 12-18-2021 Telephone encounter Val Campuzano [facility] [place] Start: 10-09-2021 End: 10-09-2021 ambulatory Val Campuzano Other [employer] Other Start: 10-09-2021 Telephone encounter Val Campuzano [facility] [place] Start: 09-03-2021 End: 09-03-2021 ambulatory Lei Russell Other [employer] Other Start: 09-03-2021 Telephone encounter Lei Russell [facility] Start: 08-02-2021 End: 08-02-2021 ambulatory Lei Russell Other [employer] Other Start: 08-02-2021 Telephone encounter Lei Russell [facility] Start: 07-27-2021 End: 07-27-2021 ambulatory Val Campuzano Other [employer] Other Start: 07-27-2021 Telephone encounter Val Campuzano [facility] [place] Start: 06-27-2021 End: 06-27-2021 ambulatory Val Campuzano Other [employer] Other Start: 06-27-2021 Telephone encounter Val Campuzano [facility] [place] Start: 05-22-2021 End: 05-22-2021 ambulatory Lei Russell Other [employer] [facility] [employer] Other Start: 05-22-2021 Encounter by compute r link Lei Russell [facility] Start: 04-24-2021 End: 04-24-2021 ambulatory Lei Russell Other [facility] [employer] Other Start: 04-24-2021 Telephone encounter Lei Russell [facility] Start: 04-12-2021 End: 04-12-2021 ambulatory Lei Russell Other [employer] Other Start: 04-12-2021 Telephone encounter Lei Russell [facility] Start: 03-29-2021 End: 03-29-2021 ambulatory Val Campuzano Other [employer] Other Start: 03-29-2021 Telephone encounter Val Campuzano [facility] Start: 02-06-2021 End: 02-06-2021 ambulatory Lei Russell Other [employer] Other Start: 02-06-2021 Telephone encounter Lei Russell [facility] Start: 12-28-2020 Telephone encounter Val Campuzano [facility] Start: 12-01-2019 End: 12-01-2019 Patient encounter procedure NIVIA CALILY Facility: Procedures Date Procedure Procedure Detail Performing Clinician Start: 01-02-2022 Plain X-ray of bilateral hands DO Severiano Huitron Work Phone: Start: 11-24-2018 H/O: hysterectomy Status post hysterectomy Edwin Rodriguez DO Work Phone: History of operative procedure on knee Val Campuzano Other Hysterectomy Val Campuzano Other Plan of Treatment Date Care Activity Detail Author Start: 05-20-2023 End: 05-20-2023 Patient encounter procedure 05/20/2023 8:45 AM EST Office Visit [facility] [address] [place] [phone] Neeta Fatima, DO [address] [place], [place] [id number] [facility] Start: 05-06-2023 End: 05-06-2023 Patient encounter procedure 05/06/2023 2:00 PM EST Office Visit [facility] [address] [place] [phone] Edwin Rodriguez, DO [address] [place], [place] [phone] Arrived [facility] Comment on above: Arrived Start: 04-19-2023 Hemoglobin A1c measurement Diabetes: Hemoglobin A1C [facility] Start: 06-19-2022 Glaucoma screening Diabetes: R etinopathy Screening [facility] Start: 1998 Screening for malign ant neoplasm of breast Mammogram [facility] Start: 1977 Urine screening for protein Diabetes: Urine Protein Screening [facility] Start: 1958 Screening for malign ant neoplasm of colon [facility] Immunizations Immunization Date Immunization Notes Care Provider Fa farzaneh 01-09-2021 influenza, injectabl e, quadrivalent, preservative free Edwin [place] DO Work Phone: [facility] 12-16-2019 influenza, injectabl e, quadrivalent, preservative free Edwin [place] DO Work Phone: [facility] 10-29-2016 Kenalog -40 mg Val Campuzano Other [employer] Other Payers Date Payer Category Payer Unknown BCBS BCBS [id number] 2023-Present [phone] [address] [place] [address] [id number] 2023 Unknown [id number] 2022 Self-pay [id number] 1959 Self-pay [id number] 1959 Unknown [id number] 1958 Unknown [id number] 1958 Unknown [id number] 1958 Unknown [id number] 1958 Unknown [id number] Unknown [id number] Social History Date Type Detail Facility Unknown if ever smoked [facility] Other Start: 09-03-2022 End: 03-06-2023 Sex Assigned At [facility] Start: 1960 Sex Assigned At Female F [facility] Start: 09-03-2022 End: 10-09-2022 Tobacco smoking status NHIS Never smoked tobacco [facility] Start: 09-03-2022 Tobacco use and exposure Smokeless tobacco non-user [facility] Start: 03-06-2023 Alcohol intake Lifetime non-d tim (finding) [facility] Start: 09-03-2022 End: 03-06-2023 History of Social function [facility] Within the last year , have you been afraid of your partner or ex-partner? No [facility] In a typical week, h ow many times do you talk on the telephone with family, friends, or neighbors? Patient refused [facility] Are you now , , , , never or living with a partner? [facility] How often to you hav e a drink containing alcohol? Never [facility] How hard is it for y ou to pay for the very basics like food, housing, medical care, and heating Not very hard [facility] Do you feel stress - tense, restless, nervous, or anxious, or unable to sleep at night because your mind is troubled all the time - these days [OSQ] Very much [facility] (I/We) worried wheth er (my/our) food would run out before (I/we) got money to buy more. Never true [facility] Start: 1960 Sex Assigned At Not on file [facility] Clinical Notes 02-06-2021 to 10-09-2022 Note Date & Type Note Facility 10-09-2022 Evaluation note Encounter Date Diagnosis Assessment Notes Sep, Arthritis of carpometacarpal (CMC) joint of left thumb (ICD-10 - M18.12) Patient's pain is primarily coming from thumb CMC joints. Once again we have discussed the use of topical and oral NSAIDs, use of heat and ice, bracing, hand therapy with modalities, use of lidocaine patches, use of turmeric/curcum in and Glucosamine/Cho ndroitin, and oral and injectable steroids. We also discussed surgical options to include CMC fusion and trapeziectomy LRTI. Patient declines cortisone injections. Would like to try therapy with iontophoresis and oral steroid. OT order given. Rx Prednisone Sep, Arthritis of carpometacarpal (CMC) joint of right thumb (ICD-10 - M18.11) Sep, De Quervain's tenosynovitis, bilateral (ICD-10 - M65.4) Sep, Pain in left hand (ICD-10 - M79.642) Sep, Pain in right hand (ICD-10 - M79.641) [facility] Other 11-09-2022 Evaluation note* Encounter Date Diagnosis Assessment Notes Treatment Notes Treatment Clinical Notes Jan, Arthritis of carpometacarpal (CMC) joint of left thumb (ICD-10 - M18.12) Continue therapy for strengthening exercises. Instructed to contact the office wtih any questions or concerns. Jan, Arthritis of carpometacarpal (CMC) joint of right thumb (ICD-10 - M18.11) Jan, De Quervain's tenosynovitis, bilateral (ICD-10 - M65.4) Jan, Pain in left hand (ICD-10 - M79.642) Jan, Pain in right hand (ICD-10 - M79.641) [facility] Other 10-12-2022 Evaluation note* Encounter Date Diagnosis Assessment Notes Treatment Notes Treatment Clinical Notes Dec, Arthritis of carpometacarpal (CMC) joint of left thumb (ICD-10 - M18.12) Dec, Arthritis of carpometacarpal (CMC) joint of right thumb (ICD-10 - M18.11) Right thumb CMC and right wrist dequervains injected with cortisone under sterile technique, patient tolerated well. Order given for OT, bracing Dec, De Quervain's tenosynovitis, bilateral (ICD-10 - M65.4) Dec, Pain in left hand (ICD-10 - M79.642) Dec, Pain in right hand (ICD-10 - M79.641) [facility] Other 06-13-2022 Evaluation note* Encounter Date Diagnosis Assessment Notes Treatment Notes Treatment Clinical Notes Aug, Major depressive disorder, recurrent, moderate (ICD-10 - F33.1) [facility] Other 05-12-2022 Evaluation note* Encounter Date Diagnosis Assessment Notes Treatment Notes Treatment Clinical Notes July, Major depressive disorder, recurrent, moderate (ICD-10 - F33.1) [facility] Other 03-01-2022 Evaluation note* Encounter Date Diagnosis Assessment Notes Treatment Notes Treatment Clinical Notes May, Major depressive disorder, recurrent, moderate (ICD-10 - F33.1) [facility] Other 01-20-2022 Evaluation note* Encounter Date Diagnosis Assessment Notes Treatment Notes Treatment Clinical Notes Mar, Major depressive disorder, recurrent, moderate (ICD-10 - F33.1) [facility] Other 11-16-2021 Evaluation note* Encounter Date Diagnosis Assessment Notes Treatment Notes Treatment Clinical Notes Jan, Major depressive disorder, recurrent, moderate (ICD-10 - F33.1) [employer] Other Evaluation noteNo InformationNort [employer] Other Evaluation noteNo assessment information available [facility] Work Phone: Evaluation note* Diagnosis Onset Date Resolution Status Arthritis of carpometacarpal (CMC) joint of both thumb s acute De Quervain's tenosynovitis, bilateral acute [facility] Work Phone: History general Narrative - Reported* Type Description Date Medical History Generalized anxiety disorder Medical History Hypertension Medical History Hypothyroidism Medical History Diabetes Medical History Depression Medical History Generalized anxiety disorder Medical History Major depression, recurrent, chr onic Surgical History Procedure:cholecystectomy Surgical History thyroidectomy Surgical History gastric bypass Surgical History Procedure:cyst removed dorsal R T foot 1979 Surgical History hysterectomy Surgical History Procedure:appendectomy Surgical History Procedure:Hysterectomy Surgical History tonsillectomy and adenoidectomy Surgical History appendectomy Surgical History Procedure:Thyroidectomy;Disease :Thyroid Cancer 2004 Surgical History cholecystectomy Surgical History Procedure:knee scoped LT x 2 20 11/2011 Surgical History Procedure: section Surgical History Procedure:tonsillectomy Surgical History Procedure:Gastric bypass w/ cho flor 1999 Surgical History Coccyxectomy Surgical History Rt. Achilles tendon surgery 201 5 Surgical History Wound debridement wi th antiobiotic lavage Rt. posterior heel 03/2015 Surgical History LT TKA - Dr. Tomlinson 12/03/17 Hospitalization History see above surgical histo ry [employer] Other Summary Purpose Family History Relationship Condition Age at Onset Recorded Date/T theron father Diabetes mellitus Unknown Hypertension Unknown Unknown Malignant neoplasm Unknown Not Specified Unknown sibling Diabetes mellitus Unknown Advance Directives Advance Directive Response Recorded Date/ Time Advance Directives No January 2:25pm Advance Directive Response Recorded Date/ Time Advance Directives No January 1:25pm Chief Complaint and Reason for Visit Chief Complaint OP SP BILAT HAND LUZ MARIA N NX Reason for Visit Arthritis of carpome tacarpal (CMC) joint of both thumbs De Quervain's tenosynovitis, bilateral Additional Source Comments INFORMATION SOURCE (unrecogn ized section and content) DATE CREATED AUTHOR 12/15/2019 [facility] DATE CREATED AUTHOR AUTHOR'S ORGANIZ ATION 05/21/2021 [facility] Special[facility] DATE CREATED AUTHOR AUTHOR'S ORGANIZ ATION 05/02/2023 [facility] DATE CREATED AUTHOR AUTHOR'S ORGANIZ ATION 05/08/2023 [facility] dical Specialists EPIC REASON FOR VISIT (unrecogniz ed section and content) cancellationrefillcancelled apptCancellationrefillsNew Refill RequestupdaterefillscancelledrefillupdatecancelledcancelledBilateral Hand and Thumb PainRecheck Bilateral HandsCancel Appointment RequestNo InformationBilateral Hand Pain Care Teams (unrecognized sec tion and content) Team Status: Active Member Role Status Dates Severiano Huitron DO Primary Care Provider Active Team Status: Inactive Member Role Status Dates Severiano Huitron DO Primary Care Provider Active St art: May 13, 2023 End: May 13, 2023 Elizabeth Arora MD Attending Provider Active Start: May 13, 2023 End: May 13, 2023 Team Status: Inactive Member Role Status Dates Severiano Huitron DO Primary Care Provider Active Elizabeth Arora MD Attending Provider Active Team Status: Active Member Role Status Dates Severiano Huitron DO Primary Care Provider Active 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 Relationship Specialty Start Date End Date BrianSeveriano palacios [address] [place] [address] PCP - General 09/03/22 Neeta Fatima DO [address] [place] [address] PCP - [facility] [employer] 08/22/22 Team Status: Inactive Member Role Status Dates Severiano Huitron DO Primary Care Provider Active St art: May 13, 2023 End: May 13, 2023 Elizabeth Arora MD Attending Provider Active Start: May 13, 2023 End: May 13, 2023 Goals (unrecognized section and content) Goals may be documented in a n alternate section FOR RECORDS PERTAINING TO PATIENTS WHO ARE OR HAVE BEEN ENROLLED IN A CHEMICAL DEPENDENCY/SUBSTANCEABUSE PROGRAM, SOME INFORMATION MAY BE OMITTED. This clinical summary was aggregated from multiple sources. Caution should be exercised in using it in the provision of clinical care. This summary normalizes information from multiple sources, and as a consequence, information in this document may materially change the coding, format and clinical context of patient data. In addition, data may be omitted in some cases. CLINICAL DECISIONS SHOULD BE BASED ON THE PRIMARY CLINICAL RECORDS. [employer] provides no warranty or guarantee of the accuracy or completeness of information in this document.
[2023-05-15 14:56] LABS: Alanine Aminotransferase 53 U/L (14-59); Albumin Globulin Ratio 0.8; Albumin Level 3.1 g/dL (3.4-5.0); Alkaline Phosphatase 86 U/L (46-116); Aspartate Amino Transferase 40 U/L (15-37); Bilirubin Total 0.3 mg/dL (0.2-1.0); Calcium 7.8 mg/dL (8.5-10.1); Carbon Dioxide 28.7 mmol/L (21.0-32.0); Chloride 111 mmol/L (98-107); Estimated GFR (African America 53 (>=60); Estimated GFR (Non-African Ame 44 (>=60); Globulin 3.8 g/dL; Glucose 83 mg/dL (74-106); Potassium 4.7 mmol/L (3.5-5.1); Sodium 148 mmol/L (136-145); Total Protein 6.9 g/dL (6.4-8.2)
[2023-05-15] MEDS: CALCIUM GLUCONATE 2,000 MG in 0.9 % SODIUM CHLORIDE 100 ML 120 MG IV (15:13)
[2023-05-15 16:18] VITALS: BP 122/78; PULSE 67; RESP 16; O2SAT 97
== END 2023-05-15 16:20 | disposition home or self-care (01) ==
PROVIDERS: Physician Assistant; Emergency Provider Emergency Medicine; PCP Family Medicine
DX: E83.51 Hypocalcemia (principal)
CPT/HCPCS: 36415; 80053; 96365; 99284; J0612

== ENCOUNTER 2023-06-09 11:34 | Observation (INO) | payer BC, SELFPAY ==
[2023-06-09] VITALS (37 sets, daily range): BP systolic 108–134; BP diastolic 63–77; PULSE 69–86; RESP 3–24; TEMP 36.4–37.2; O2SAT 97–100; BMI 23.9; BMI 21.9
--- NOTE | 2023-06-09 11:52 | ECG_ITS ---
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
[2023-06-09] MEDS: 0.9 % SODIUM CHLORIDE 1,000 ML 100 ML IV (12:10)
[2023-06-09 12:21] LABS: Basophils Percent Auto 0.7 % (0.2-2.0); Eosinophils Absolute Auto 0.1 10^3/uL (0.0-0.7); Eosinophils Percent Auto 2.2 % (0.9-7.0); Hematocrit 35.5 % (36.0-48.0); Hemoglobin 10.8 g/dL (12.0-16.0); Immature Granulocytes Abs Auto 0.01 10^3/uL (0.00-0.03); Immature Granulocytes Pct Auto 0.2 % (0.0-0.5); Lymphocytes Absolute Auto 0.9 10^3/uL (1.2-3.8); Lymphocytes Percent Auto 19.6 % (20.5-60.0); Mean Corpuscular HGB Conc 30.4 g/dL (29.9-35.2); Mean Corpuscular Hemoglobin 28.1 pg (26.7-34.0); Mean Corpuscular Volume 92.4 fL (81.0-99.0); Monocytes Absolute Auto 0.3 10^3/uL (0.3-0.8); Monocytes Percent Auto 7.6 % (1.7-12.0); Neutrophils Absolute Auto 3.1 10^3/uL (1.4-6.5); Neutrophils Percent Auto 69.7 % (43.0-75.0); Platelet Count 217 10^3/uL (150-450); Red Blood Count 3.84 10^6/uL (4.20-5.40); Red Cell Distribution Width 13.8 % (11.0-15.0); White Blood Count 4.5 10^3/uL (4.0-11.0)
--- NOTE | 2023-06-09 12:27 | ED.GENADUL1 ---
HPI - General Adult General Chief complaint: Recheck/Abnormal Lab/Rx Stated complaint: ABNORMAL LAB LEVELS Time Seen by Provider: 06/09/23 11:52 Source: patient Mode of arrival: walk-in Limitations: no limitations History of Present Illness HPI narrative: Patient is a 62-year-old very pleasant female who is presenting to the ER today with chief complaint of low calcium levels. Patient report was called ahead from . Patient has a history of thyroid resection, secondary to thyroid cancer. Patient is on thyroid medication. Patient calcium levels have been 6.6, patient is having paresthesias circumoral to her face, arms, legs. Patient has been treating outpatient with oral calcium supplements for the past month. Patient is feeling mild fatigue, mild weakness, more intermittent leg spasming with paresthesias to her face, arms and legs. Patient was sent to the ER to be admitted to the hospital for IV calcium replacement since she is feeling oral treatment. Patient says that her daughter has a procedure at [facility] on , and she must be at the hospital by then to go to her daughter's appointment. Patient daughter has some type of adrenal mass right biopsy is going to be done. Patient has no headache, no chest pain or shortness of breath, no other acute complaints. Patient is pale complected at baseline. All systems are negative except as noted/marked. All systems reviewed and otherwise negative. Nurses note and vital signs reviewed and patient is not hypoxic. General: The patient appears well and in no apparent distress. Patient is resting comfortably on cart. Patient is not toxic, lethargic, or listless Skin: Warm, dry, no pallor noted. There is no rash noted. No petechiae, purpura. Head: Normocephalic, atraumatic, positive Chvostek sign. Eye: pale conjunctiva, no drainage, EOMI. PERRL Ears, Nose, Mouth, and Throat: oral mucosa is moist. Nares patent. Mouth without vesicles. Cardiovascular: Regular Rate and Rhythm, no murmur, gallop, rub Respiratory: Patient is in no distress, no accessory muscle use, lungs are clear to auscultation, no wheezing, rales or rhonchi Back: non-tender, no CVA tenderness bilaterally to percussion. No CT LS midline pain GI: no tenderness to palpation, no masses appreciated. No rebound, guarding, or rigidity noted. No distention Musculoskeletal: Patient has full range of motion of all of the extremities, no motor, sensory, or focal neurological deficits Neurological: A&O x4, normal speech Psychiatric: Cooperative Related Data Home Medications Medication Instructions Recorded Confirmed bupropion HCl 150 mg 24 hr tablet, 450 mg PO DAILY 05/15/23 06/09/23 extended release clonazepam 0.5 mg tablet 0.5 mg PO TID 05/15/23 06/09/23 dapagliflozin propanediol 10 mg 10 mg PO DAILY 05/15/23 06/09/23 tablet (Farxiga) levothyroxine 175 mcg tablet 175 mcg PO DAILY 05/15/23 06/09/23 lisinopril 10 1 tab PO DAILY 05/15/23 06/09/23 mg-hydrochlorothiazide 12.5 mg tablet olanzapine 2.5 mg tablet 2.5 mg PO DAILY 05/15/23 06/09/23 venlafaxine 75 mg capsule,extended 75 mg PO DAILY 05/15/23 06/09/23 release 24 hr vortioxetine 20 mg tablet 20 mg PO DAILY 05/15/23 06/09/23 (Trintellix) vhhdgstqcm-ivxtmyffjwaso-ehyasedq 1 tab PO Q6H PRN migraine headache 06/09/23 06/09/23 50 mg-325 mg-40 mg tablet calcium 500 mg tablet 1,500 mg PO BID 06/09/23 06/09/23 quetiapine 25 mg tablet 25 mg PO .qhs 06/09/23 06/09/23 tirzepatide 5 mg/0.5 mL 5 mg subcut .once per week 06/09/23 06/09/23 subcutaneous pen injector (Mounjaro) Allergies Allergy/AdvReac Type Severity Reaction Status Date / Time morphine AdvReac Severe Vomiting Verified 06/09/23 11:44 Penicillins AdvReac Hives Verified 06/09/23 11:44 PFSH [facility] Medical History (Updated 06/09/23 @ 17:04 by Tashia Szymanski NP) HTN (hypertension) ?I10 - Essential (primary) hypertension (ICD-10) Hypothyroidism ?E03.9 - Hypothyroidism, unspecified (ICD-10) Migraine ?G43.909 - Migraine, unspecified, not intractable, without status migrainosus (ICD-10) Depression ?F32.A - Depression, unspecified (ICD-10) Diabetes ?E11.9 - Type 2 diabetes mellitus without complications (ICD-10) Thyroid cancer ?C73 - Malignant neoplasm of thyroid gland (ICD-10) Surgical History (Updated 06/09/23 @ 15:54 by Rafia Barraza RN) H/O thyroidectomy ?E89.0 - Postprocedural hypothyroidism (ICD-10) H/O gastric bypass ?Z98.84 - Bariatric surgery status (ICD-10) Social History Smoking status: Never smoker Highest level of school completed/degree received: Associate degree: occupational, technical, vocational program Exam Constitutional Vital Signs, click to edit/add: Last Vital Signs Temp 98.5 F 06/09/23 19:49 Pulse 76 06/09/23 19:49 Resp 12 06/09/23 19:49 BP 113/65 06/09/23 19:49 Pulse Ox 98 06/09/23 19:49 O2 Del Method Room Air 06/09/23 19:49 Course Vital Signs Vital signs: Vital Signs Blood Pressure 120/70 06/09/23 11:44 Pulse Oximetry 100 06/09/23 11:44 Temperature 98.5 F 06/09/23 19:49 Pulse Rate 76 06/09/23 19:49 Respiratory Rate 12 06/09/23 19:49 Blood Pressure 113/65 06/09/23 19:49 Pulse Oximetry 98 06/09/23 19:49 Oxygen Delivery Method Room Air 06/09/23 19:49 Medical Decision Making [facility] Narrative Medical decision making narrative: Patient's repeat calcium level was low. Patient had 2 g of calcium they were ordered and given in the ER. Patient will be admitted for observation for hypocalcemia. I spoke to Dr. Clark and he agrees with admission, he will continue IV calcium replacement. Patient TSH is 12, free T4 is normal. Patient's phosphorus is 5, magnesium levels were ordered as well. Patient be admitted for electrolyte imbalance. Dr. Clark is aware that patient needs to be out of the hospital by to take her daughter to the [facility] to have her adrenal gland biopsy. Patient is willing to stay overnight. 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 She allowed us to show staff Chvostek sign as well which was appreciated. Patient given 2 g of IV calcium, patient has been on continuous gambling monitor. Patient was given IV calcium over one hour in the Emergency Room. Continues cardiac monitoring. Critical care time 31 minutes exclusive from separate billable procedures that were performed. The following was considered in the determination of critical care but not limited to the level of medical decision making, intensive cardiac and/or respiratory monitoring, frequent vital sign monitoring, evaluation of laboratory studies, evaluation of radiographic studies, oxygen monitoring, and constant monitoring and speaking to family at bedside Lab Data Lab results reviewed: Yes I reviewed the patient's lab results Labs: Lab Results 06/09/23 Range/Units 12:10 WBC 4.5 (4.0-11.0) 10^3/uL RBC 3.84 L (4.20-5.40) 10^6/uL Hgb 10.8 L (12.0-16.0) g/dL Hct 35.5 L (36.0-48.0) % MCV 92.4 (81.0-99.0) fL MCH 28.1 (26.7-34.0) pg MCHC 30.4 (29.9-35.2) g/dL RDW 13.8 (11.0-15.0) % Plt Count 217 (150-450) 10^3/uL MPV 9.0 L (9.5-13.5) fL Neut % (Auto) 69.7 (43.0-75.0) % Lymph % (Auto) 19.6 L (20.5-60.0) % Forest % (Auto) 7.6 (1.7-12.0) % Eos % (Auto) 2.2 (0.9-7.0) % Baso % (Auto) 0.7 (0.2-2.0) % Neut # (Auto) 3.1 (1.4-6.5) 10^3/uL Lymph # (Auto) 0.9 L (1.2-3.8) 10^3/uL [place] # (Auto) 0.3 (0.3-0.8) 10^3/uL Eos # (Auto) 0.1 (0.0-0.7) 10^3/uL Baso # (Auto) 0.0 (0.0-0.1) 10^3/uL Abs Immat Gran (auto) 0.01 (0.00-0.03) 10^3/uL Imm/Tot Granulo (auto) 0.2 (0.0-0.5) % Sodium 141 (136-145) mmol/L Potassium 4.3 (3.5-5.1) mmol/L Chloride 105 (98-107) mmol/L Carbon Dioxide 27.8 (21.0-32.0) mmol/L Anion Gap 12.5 BUN 26.0 H (7.0-18.0) mg/dL Creatinine 1.01 (0.55-1.02) mg/dL Est GFR ( Amer) >60 (>=60) Est GFR (Non-Af Amer) 55 L (>=60) BUN/Creatinine Ratio 25.7 Glucose 110 H (74-106) mg/dL Calcium 6.7 L (8.5-10.1) mg/dL Phosphorus 5.0 H (2.6-4.7) mg/dL Magnesium 2.2 (1.8-2.4) mg/dL Total Bilirubin 0.3 (0.2-1.0) mg/dL AST 34 (15-37) U/L ALT 41 (14-59) U/L Alkaline Phosphatase 97 (46-116) U/L Troponin I High Sens 6.5 (4.0-51.3) pg/mL Total Protein 6.4 (6.4-8.2) g/dL Albumin 3.2 L (3.4-5.0) g/dL Globulin 3.2 g/dL Albumin/Globulin Ratio 1.0 TSH 12.155 H (0.358-3.740) uIU/mL Free T4 0.81 (0.76-1.46) ng/dL ECG Data Attestation: I personally reviewed and interpreted this ECG as follows: (EKG interpretation. Normal sinus rhythm at 68 beats a minute. Normal axis deviation. No acute ST elevation, no acute ectopy. QTc of 424) Discharge Plan Discharge Chief Complaint: Recheck/Abnormal Lab/Rx Clinical Impression: Hypocalcemia Patient Disposition: Admitted As Inpatient Time of Disposition Decision: 13:20 Discharge Date/Time: 06/09/23 14:35
[2023-06-09 12:47] LABS: Alanine Aminotransferase 41 U/L (14-59); Albumin Level 3.2 g/dL (3.4-5.0); Alkaline Phosphatase 97 U/L (46-116); Anion Gap 12.5; Aspartate Amino Transferase 34 U/L (15-37); BUN Creatinine Ratio 25.7; Bilirubin Total 0.3 mg/dL (0.2-1.0); Calcium 6.7 mg/dL (8.5-10.1); Carbon Dioxide 27.8 mmol/L (21.0-32.0); Chloride 105 mmol/L (98-107); Estimated GFR (African America >60 (>=60); Estimated GFR (Non-African Ame 55 (>=60); Globulin 3.2 g/dL; Glucose 110 mg/dL (74-106); Magnesium 2.2 mg/dL (1.8-2.4); Potassium 4.3 mmol/L (3.5-5.1); Sodium 141 mmol/L (136-145); Total Protein 6.4 g/dL (6.4-8.2); Troponin I High Sensitivity 6.5 pg/mL (4.0-51.3)
[2023-06-09 12:52] LABS: Free T4 0.81 ng/dL (0.76-1.46); Thyroid Stimulating Hormone 12.155 uIU/mL (0.358-3.740)
[2023-06-09] MEDS: CALCIUM GLUC IN NACL, ISO-OSM 1 GM/50 ML PLAST..BAG IV ×4 (13:40→17:52)
--- NOTE | 2023-06-09 16:33 | P.HP_ITS ---
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 Agree with assessment and plan below. Presented due to abnormal labs and failed outpatient treatment with oral calcium. Give IV calcium and monitor calcium. Diagnosis: 1. Hypocalcemia 2. Hypthyroidism 3. DM2 4. HTN HPI H&P: HPI History of Present Illness Chief complaint: HYPOCALCEMIA Narrative: 06/09/23 5815 This is a 62-year-old female patient with a past medical history as outlined below including DM2, depression and anxiety, morbid obesity s/p gastric bypass surgery, thyroid cancer s/p thyroid resection (2004), and chronic hypocalcemia; who presented to the ED on the advice of her PCP due to symptomatic hypocalcemia. The patient reports her baseline calcium level is around 8. In April she presented to the ED with tingling of her face and hands and was found to be hypocalcemic and was treated with IV calcium gluconate and her symptoms resolved. She has been taking oral calcium supplementation at home since that time. Repeat labs yesterday revealed a calcium of 6.5 and she was contacted by her PCP to present to the ED today for IV calcium replacement. She was complaining of circumoral and facial paresthesias, and cramps of her calves and feet on arrival to the ED today. Workup in the ED revealed hypocalcemia (6.72), mild hyperphosphatemia (5.0), and elevated TSH (12.15) with a normal FT4 (0.81). The patient was treated with 2 g of of IV calcium gluconate and admitted to observation by the hospitalist service for further monitoring and treatment as indicated. At the time of my exam the patient is resting in bed. She reports feeling much better after receiving 2 g of calcium gluconate. She had a positive to Chvostek sign in the ED, but I cannot elicit the sign on my exam after her calcium infusion. She reports resolution of her calf cramping and circumoral numbness. She denies any previous seizures from hypocalcemia. She reports a remote history of calcitriol administration after her thyroidectomy in 2004. She was on this medication for several years but it was discontinued many years ago without significant hypocalciumia until recently. She reports taking her thyroid medication as prescribed and a recent TSH on 05/06/2023 was 2.22. This may reflect acute hypoparathyroidism of unclear etiology at this late stage after thyroidectomy. Opioid HPI Opioid Management Most Recent Opioid Data: Last Pain Assessment 06/09/23 16:00 Last ORT Total Score 2 06/09/23 14:40 Last ORT Risk Category Low Risk 06/09/23 14:40 Review of Systems ROS Status of ROS 10 or more systems reviewed and unremark able except as noted in history and below PFS PFS Medical History (Updated 06/09/23 @ 17:04 by Tashia Szymanski NP) HTN (hypertension) ?I10 - Essential (primary) hypertension (ICD-10) Hypothyroidism ?E03.9 - Hypothyroidism, unspecified (ICD-10) Migraine ?G43.909 - Migraine, unspecified, not intractable, without status migrainosus (ICD-10) Depression ?F32.A - Depression, unspecified (ICD-10) Diabetes ?E11.9 - Type 2 diabetes mellitus without complications (ICD-10) Thyroid cancer ?C73 - Malignant neoplasm of thyroid gland (ICD-10) Surgical History (Updated 06/09/23 @ 15:54 by Rafia Barraza RN) H/O thyroidectomy ?E89.0 - Postprocedural hypothyroidism (ICD-10) H/O gastric bypass ?Z98.84 - Bariatric surgery status (ICD-10) Social History Smoking status: Never smoker Highest level of school completed/degree received: Associate degree: occupational, technical, vocational program Meds Home Medications and Allergies Home Medications Medication Instructions Recorded Confirmed Type bupropion HCl 150 mg 24 hr tablet, 450 mg PO DAILY 05/15/23 06/09/23 History extended release clonazepam 0.5 mg tablet 0.5 mg PO TID 05/15/23 06/09/23 History dapagliflozin propanediol 10 mg 10 mg PO DAILY 05/15/23 06/09/23 History tablet (Farxiga) levothyroxine 175 mcg tablet 175 mcg PO DAILY 05/15/23 06/09/23 History lisinopril 10 1 tab PO DAILY 05/15/23 06/09/23 History mg-hydrochlorothiazide 12.5 mg tablet olanzapine 2.5 mg tablet 2.5 mg PO DAILY 05/15/23 06/09/23 History venlafaxine 75 mg capsule,extended 75 mg PO DAILY 05/15/23 06/09/23 History release 24 hr vortioxetine 20 mg tablet 20 mg PO DAILY 05/15/23 06/09/23 History (Trintellix) boxlwwrxeo-lnlkitorjntmr-ugkjtxyl 1 tab PO Q6H PRN migraine headache 06/09/23 06/09/23 History 50 mg-325 mg-40 mg tablet calcium 500 mg tablet 1,500 mg PO BID 06/09/23 06/09/23 History quetiapine 25 mg tablet 25 mg PO .qhs 06/09/23 06/09/23 History tirzepatide 5 mg/0.5 mL 5 mg subcut .once per week 06/09/23 06/09/23 History subcutaneous pen injector (Leopoldo) Allergies Allergy/AdvReac Type Severity Reaction Status Date / Time morphine AdvReac Severe Vomiting Verified 06/09/23 11:44 Penicillins AdvReac Hives Verified 06/09/23 11:44 Exam Constitutional Vital Signs, click to edit/add: Last Vital Signs Temp 98.9 F 06/09/23 14:40 Pulse 78 06/09/23 15:30 Resp 19 06/09/23 15:30 BP 134/77 06/09/23 14:42 Pulse Ox 97 06/09/23 15:00 O2 Del Method Room Air 06/09/23 14:40 Common normals: no apparent distress, oriented x3, alert and well nourished General appearance: cooperative Orientation/consciousness: Yes awake HENOH Common normals: normocephalic, head/scalp atraumatic, hearing grossly normal bilaterally, external nose normal and moist oral mucous membranes Eye Common normals: PERRL, EOMs intact bilaterally, conjunctivae normal and no scleral icterus Alignment: alignment normal Eyelid: eyelids normal Neck & C-Spine Common normals: full ROM, supple and no JVD Chest Common normals: inspection of chest normal Chest: symmetrical chest wall rise Respiratory Common normals: normal respiratory effort, no retractions, no use of accessory muscles and clear to auscultation bilaterally Effort & inspection: able to speak in complete sentences Cardio Common normals: no JVD, regular rate, regular rhythm, S1 normal heart sound, S2 normal heart sound, no gallops, no clicks, no rub and peripheral pulses 2+ throughout Heart sounds: murmur (HSM 2/6) GI Common normals: Normal to inspection, nondistended, normoactive bowel sounds present, soft to palpation, non-tender, no hepatosplenomegaly, no masses and no bruits Bladder/kidney exam: bladder normal to palpation Back & Pelvis Common normals: thoracic and lumbar spine normal to inspection Extremity Common normals: normal capillary refill and no pedal edema General: normal exam except as noted; no clubbing and no cyanosis Neuro [place] Coma Scale: GCS not evaluated Common normals: CN's II-XII intact bilaterally, moves all extremities, no focal motor deficits and no sensory deficits noted Speech: speech normal Motor exam: strength 5/5 throughout Psych Common normals: mental status grossly normal, thought process normal, affect normal and activity/motor behavior normal Results Labs Labs: Short CBC 06/09/23 Range/Units 12:10 WBC 4.5 (4.0-11.0) 10^3/uL Hgb 10.8 L (12.0-16.0) g/dL Hct 35.5 L (36.0-48.0) % Plt Count 217 (150-450) 10^3/uL BMP 06/09/23 12:10 Sodium 141 Potassium 4.3 Chloride 105 Carbon Dioxide 27.8 BUN 26.0 H Creatinine 1.01 Glucose 110 H Calcium 6.7 L Liver Function 06/09/23 Range/Units 12:10 Total Bilirubin 0.3 (0.2-1.0) mg/dL AST 34 (15-37) U/L ALT 41 (14-59) U/L Alkaline Phosphatase 97 (46-116) U/L Albumin 3.2 L (3.4-5.0) g/dL Pulse Oximetry Attestation: I have reviewed the pertinent pulse oximetry results. Assessment and Plan Assessment and Plan (1) Hypocalcemia: Assessment and Plan: Acute on Chronic * Adm observation * Baseline Ca++ level around 8.0 * Recent labs since Apr have been 7.8 or below * Failed OP Oral supplementation * OP labs per PCP yesterday w/ Ca++ of 6.5 * 6.7 on arrival to ED today, symptomatic * 2gm Calcium Gluconate IVPB given in the ED * Symptoms resolved since Calcium administration * Seizure precautions * Tele monitoring * Vit D, PTH, Ionized Calcium levels ordered (send out) - pending * Check BMP q6h and replete w/ Calcium Gluconate for Ca++ less than 8 * Consider resumption of Calcitriol BID pending clinical course * CBC, CMP in AM (2) Hypothyroidism: Assessment and Plan: Chronic * s/p Thyroidectomy 04/25 thyroid CA (2004) * Taking levothyroxine as prescribed * TSH 12.155 in ED today * FT4 0.81 - WNL * Recent OP TSH on 05/06/13 was 2.22 * Etiology of abrupt elevation of TSH is unclear * Repeat TSH in AM * Consider increasing levothyroxine dosing pending clinical course (3) Depression: Assessment and Plan: Chronic * w/ Anxiety * Continue home Venlafaxine, Trintellix, Olanzapine, Quetiapine, bupropion, and clonazepam (4) Diabetes: Assessment and Plan: Chronic * Continue home Farxiga * Hold home Mounjaro (1x/week injection) * ACHS glucometer checks * Med SSI for glucose correction (5) HTN (hypertension): Assessment and Plan: Chronic * Continue home lisinopril/HCTZ
[2023-06-09 16:34] LABS: Anion Gap 11.1; BUN Creatinine Ratio 24.5; Calcium 7.4 mg/dL (8.5-10.1); Carbon Dioxide 28.7 mmol/L (21.0-32.0); Chloride 104 mmol/L (98-107); Estimated GFR (African America >60 (>=60); Estimated GFR (Non-African Ame 57 (>=60); Glucose 144 mg/dL (74-106); Potassium 3.8 mmol/L (3.5-5.1); Sodium 140 mmol/L (136-145)
[2023-06-09 16:56] LABS: Glucometer 135 mg/dL (74-106)
[2023-06-09] MEDS: CLONAZEPAM 0.5 MG TABLET PO (21:43)
[2023-06-09] MEDS: QUETIAPINE FUMARATE 25 MG TABLET PO (21:43)
[2023-06-09 21:45] LABS: Glucometer 102 mg/dL (74-106)
[2023-06-09 22:22] LABS: Anion Gap 9.1; BUN Creatinine Ratio 24.2; Calcium 7.8 mg/dL (8.5-10.1); Chloride 104 mmol/L (98-107); Estimated GFR (African America >60 (>=60); Estimated GFR (Non-African Ame 59 (>=60); Glucose 121 mg/dL (74-106); Potassium 4.1 mmol/L (3.5-5.1); Sodium 138 mmol/L (136-145)
[2023-06-10] VITALS (33 sets, daily range): BP systolic 140–143; BP diastolic 72–77; PULSE 62–87; RESP 12; TEMP 37; O2SAT 97
[2023-06-10] MEDS: LEVOTHYROXINE SODIUM 75 MCG TABLET PO (06:00)
[2023-06-10] MEDS: LEVOTHYROXINE SODIUM 100 MCG TABLET PO (06:00)
[2023-06-10] MEDS: CLONAZEPAM 0.5 MG TABLET PO (06:00)
[2023-06-10 07:06] LABS: Anion Gap 9.8; Carbon Dioxide 29.3 mmol/L (21.0-32.0); Chloride 103 mmol/L (98-107); Glucose 102 mg/dL (74-106); Potassium 4.1 mmol/L (3.5-5.1); Sodium 138 mmol/L (136-145)
[2023-06-10 07:07] LABS: Alanine Aminotransferase 41 U/L (14-59); Albumin Globulin Ratio 0.9; Alkaline Phosphatase 94 U/L (46-116); Aspartate Amino Transferase 31 U/L (15-37); BUN Creatinine Ratio 22.6; Bilirubin Total 0.3 mg/dL (0.2-1.0); Calcium 7.9 mg/dL (8.5-10.1); Estimated GFR (African America >60 (>=60); Estimated GFR (Non-African Ame >60 (>=60); Globulin 3.2 g/dL; Total Protein 6.2 g/dL (6.4-8.2)
[2023-06-10 07:08] LABS: Vitamin D, 25-Hydroxy 20.2 ng/mL (30.0-100.0)
[2023-06-10 07:08] LABS: Free T4 0.71 ng/dL (0.76-1.46); TSH W/ REFLEX FT4 34.838 uIU/mL (0.358-3.740)
[2023-06-10 07:09] LABS: Phosphorus 4.9 mg/dL (2.6-4.7)
[2023-06-10 07:10] LABS: Glucometer 100 mg/dL (74-106)
[2023-06-10 07:13] LABS: Bilirubin Urine NEGATIVE (NEGATIVE); Blood Urine NEGATIVE (NEGATIVE); Clarity Urine CLEAR (CLEAR); Color Urine LT. YELLOW (YELLOW); Glucose Urine UA >=1000 mg/dL (NEGATIVE); Ketones Urine NEGATIVE (NEGATIVE); Leukocyte Esterase Urine SMALL (NEGATIVE); Nitrite Urine NEGATIVE (NEGATIVE); Protein Urine NEGATIVE (NEG/TRACE); Urobilinogen Urine 0.2 EU/dL (0.2-1.0)
[2023-06-10 07:47] LABS: Hematocrit 35.6 % (36.0-48.0); Hemoglobin 10.7 g/dL (12.0-16.0); Mean Corpuscular HGB Conc 30.1 g/dL (29.9-35.2); Mean Corpuscular Hemoglobin 27.9 pg (26.7-34.0); Red Blood Count 3.83 10^6/uL (4.20-5.40); Red Cell Distribution Width 13.6 % (11.0-15.0); White Blood Count 3.5 10^3/uL (4.0-11.0)
[2023-06-10 07:48] LABS: Basophils Percent Auto 0.9 % (0.2-2.0); Eosinophils Absolute Auto 0.2 10^3/uL (0.0-0.7); Eosinophils Percent Auto 4.3 % (0.9-7.0); Immature Granulocytes Abs Auto 0.01 10^3/uL (0.00-0.03); Lymphocytes Absolute Auto 0.9 10^3/uL (1.2-3.8); Lymphocytes Percent Auto 25.6 % (20.5-60.0); Mean Platelet Volume 9.2 fL (9.5-13.5); Monocytes Absolute Auto 0.4 10^3/uL (0.3-0.8); Neutrophils Percent Auto 57.9 % (43.0-75.0); Platelet Count 208 10^3/uL (150-450)
[2023-06-10 08:16] LABS: Bacteria Urine NONE SEEN #/HPF (NONE SEEN); Mucus Urine NONE SEEN (NONE SEEN)
[2023-06-10 08:17] LABS: Cast Seen? NONE SEEN #/LPF (NONE SEEN); Squamous Epithelial Cell Urine FEW #/LPF (NONE/RARE)
[2023-06-10] MEDS: VENLAFAXINE HCL ER 75 MG CAPSULE PO (08:18)
[2023-06-10] MEDS: OLANZapine 5 MG TABLET 2.5 MG PO (08:18)
[2023-06-10] MEDS: BUPROPION HCL 150 MG XL TABLET 24H 450 MG PO (08:19)
[2023-06-10] MEDS: HYDROCHLOROTHIAZIDE 25 MG TABLET 12.5 MG PO (08:19)
[2023-06-10] MEDS: CANAGLIFLOZIN 100 MG TABLET 300 MG PO (08:19)
[2023-06-10] MEDS: LISINOPRIL 10 MG TABLET PO (08:20)
[2023-06-10] MEDS: LEVOTHYROXINE SODIUM 25 MCG TABLET PO (08:59)
[2023-06-10] MEDS: CALCITRIOL 0.25 MCG CAPSULE PO (08:59)
[2023-06-10] MEDS: CHOLECALCIFEROL (VITAMIN D3) 125 MCG/5,000 UNIT TABLET PO (08:59)
[2023-06-10] MEDS: CALCIUM GLUC IN NACL, ISO-OSM 1 GM/50 ML PLAST..BAG IV ×2 (09:35→10:05)
[2023-06-10 10:11] LABS: PTH, Intact 25 pg/mL (15-65)
--- NOTE | 2023-06-10 11:16 | P.DS_ITS ---
<Statement entered by Frankie Clark MD - 06/10/23 21:14> Patient seen and examined, agree with assessment and plan below. Admitted with hypocalcemia and given IV calcium gluconate. Labs improved overnight. Paresthesias resolved. Discharged home in stable condition and follow up with PCP. Diagnosis: 1. Hypocalcemia 2. Post-surgical hypothyroid 3. DM2 4. 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 Her baseline calcium level is usually around 8. She presented with symptomatic hypocalcemia including facial numbness and tingling and cramping of her feet and legs. She was treated with multiple doses of calcium gluconate and her symptoms completely resolved. As the patient had been on calcitriol in the past for hypocalcemia, we resumed calcitriol at the time of discharge pending follow-up with the patient's PCP. As part of our workup for etiology of hypocalcemia, a TSH was added and this was markedly elevated (12.155), with a normal FT4. Review of the patient's historical labs reveals a normal TSH of 2.2 on 05/06/2023. A repeat TSH on the day of discharge was even more elevated at 34.838 with an associated FT4 of 0.71 which is now slightly low. Etiology of the abrupt elevation in TSH is unclear. The patient's levothyroxine was increased to 200 mcg daily and we recommend follow-up with an weight loss physician as soon as it can be arranged. A vitamin D level was low at 20 and the patient was initiated on cholecalciferol daily. A PTH level was within normal limits. Sterile pyuria noted on UA and pt is asymptomatic - treatment is not indicated. Urine culture is pending. The patient is being discharged home in stable condition. She should follow-up with her PCP within 5 to 7 days and we recommend referral to endocrinology. Time Spent with Patient Time attestation: Total time spent providing and/or coordinating discharge services: Time spent: greater than 30 minutes Specific discharge activities: Physical exam, discussion of discharge plan, questions answered. Exam Constitutional Vital Signs, click to edit/add: Last Vital Signs Temp 98.6 F 06/10/23 03:00 Pulse 70 06/10/23 11:00 Resp 12 06/10/23 04:00 BP 140/72 06/10/23 07:07 Pulse Ox 97 06/10/23 03:00 O2 Del Method Room Air 06/10/23 11:00 Common normals: no apparent distress, oriented x3 and alert General appearance: cooperative Orientation/consciousness: Yes awake HENMT Common normals: normocephalic and head/scalp atraumatic Eye Common normals: PERRL, EOMs intact bilaterally, conjunctivae normal and no scleral icterus Neck & C-Spine Common normals: no JVD Respiratory Common normals: normal respiratory effort, no use of accessory muscles and clear to auscultation bilaterally Effort & inspection: able to speak in complete sentences and symmetric chest movement Cardio Common normals: no JVD, regular rate, regular rhythm, S1 normal heart sound, S2 normal heart sound, no murmurs and peripheral pulses 2+ throughout GI Common normals: Normal to inspection, nondistended, normoactive bowel sounds present, soft to palpation and non-tender Bladder/kidney exam: bladder normal to palpation Extremity Common normals: normal to inspection, full ROM, normal capillary refill and no pedal edema General: no clubbing and no cyanosis Neuro Common normals: moves all extremities, no focal motor deficits and no sensory deficits noted Speech: speech normal Psych Common normals: mental status grossly normal and activity/motor behavior normal DS: Data Data Completed and Pending Labs on day of discharge: Labs from last 24 hours 06/10/23 06/10/23 06/10/23 07:06 04:25 01:55 WBC 3.5 L RBC 3.83 L Hgb 10.7 L Hct 35.6 L MCV 93.0 MCH 27.9 MCHC 30.1 RDW 13.6 Plt Count 208 MPV 9.2 L Neut % (Auto) 57.9 Lymph % (Auto) 25.6 Jerome % (Auto) 11.0 Eos % (Auto) 4.3 Baso % (Auto) 0.9 Neut # (Auto) 2.0 Lymph # (Auto) 0.9 L Jerome # (Auto) 0.4 Eos # (Auto) 0.2 Baso # (Auto) 0.0 Abs Immat Gran (auto) 0.01 Imm/Tot Granulo (auto) 0.0 Sodium 138 Potassium 4.1 Chloride 103 Carbon Dioxide 29.3 Anion Gap 9.8 BUN 19.0 H Creatinine 0.84 Est GFR ( Amer) >60 Est GFR (Non-Af Amer) >60 BUN/Creatinine Ratio 22.6 Glucose 102 Calcium 7.9 L Phosphorus 4.9 H Magnesium 2.0 Total Bilirubin 0.3 AST 31 ALT 41 Alkaline Phosphatase 94 Troponin I High Sens Total Protein 6.2 L Albumin 3.0 L Globulin 3.2 Albumin/Globulin Ratio 0.9 25-OH Vitamin D Total TSH Free T4 0.71 L TSH & Free T4 Interp 34.838 H PTH Intact Urine Color Lt. yellow Urine Clarity Clear Urine pH 6.0 Ur Specific [place] 1.020 Urine Protein Negative Urine Glucose (UA) >=1000 A Urine Ketones Negative Urine Occult Blood Negative Urine Nitrite Negative Urine Bilirubin Negative Urine Urobilinogen 0.2 Ur Leukocyte Esterase Small A Urine RBC 2-5 A Urine WBC 10-20 A Ur Squamous Epith Cells Few A Urine Bacteria None seen Urine Casts None seen Urine Mucus None seen POC Glucose 100 06/09/23 06/09/23 06/09/23 22:07 21:43 16:54 WBC RBC Hgb Hct MCV MCH MCHC RDW Plt Count MPV Neut % (Auto) Lymph % (Auto) Jerome % (Auto) Eos % (Auto) Baso % (Auto) Neut # (Auto) Lymph # (Auto) Jerome # (Auto) Eos # (Auto) Baso # (Auto) Abs Immat Gran (auto) Imm/Tot Granulo (auto) Sodium 138 Potassium 4.1 Chloride 104 Carbon Dioxide 29.0 Anion Gap 9.1 BUN 23.0 H Creatinine 0.95 Est GFR ( Amer) >60 Est GFR (Non-Af Amer) 59 L BUN/Creatinine Ratio 24.2 Glucose 121 H Calcium 7.8 L Phosphorus Magnesium Total Bilirubin AST ALT Alkaline Phosphatase Troponin I High Sens Total Protein Albumin Globulin Albumin/Globulin Ratio 25-OH Vitamin D Total TSH Free T4 TSH & Free T4 Interp PTH Intact Urine Color Urine Clarity Urine pH Ur Specific [place] Urine Protein Urine Glucose (UA) Urine Ketones Urine Occult Blood Urine Nitrite Urine Bilirubin Urine Urobilinogen Ur Leukocyte Esterase Urine RBC Urine WBC Ur Squamous Epith Cells Urine Bacteria Urine Casts Urine Mucus POC Glucose 102 135 H 06/09/23 06/09/23 16:20 12:10 WBC 4.5 RBC 3.84 L Hgb 10.8 L Hct 35.5 L MCV 92.4 MCH 28.1 MCHC 30.4 RDW 13.8 Plt Count 217 MPV 9.0 L Neut % (Auto) 69.7 Lymph % (Auto) 19.6 L Jerome % (Auto) 7.6 Eos % (Auto) 2.2 Baso % (Auto) 0.7 Neut # (Auto) 3.1 Lymph # (Auto) 0.9 L Jerome # (Auto) 0.3 Eos # (Auto) 0.1 Baso # (Auto) 0.0 Abs Immat Gran (auto) 0.01 Imm/Tot Granulo (auto) 0.2 Sodium 140 141 Potassium 3.8 4.3 Chloride 104 105 Carbon Dioxide 28.7 27.8 Anion Gap 11.1 12.5 BUN 24.0 H 26.0 H Creatinine 0.98 1.01 Est GFR ( Amer) >60 >60 Est GFR (Non-Af Amer) 57 L 55 L BUN/Creatinine Ratio 24.5 25.7 Glucose 144 H 110 H Calcium 7.4 L 6.7 L Phosphorus 5.0 H Magnesium 2.2 Total Bilirubin 0.3 AST 34 ALT 41 Alkaline Phosphatase 97 Troponin I High Sens 6.5 Total Protein 6.4 Albumin 3.2 L Globulin 3.2 Albumin/Globulin Ratio 1.0 25-OH Vitamin D Total 20.2 L TSH 12.155 H Free T4 0.81 TSH & Free T4 Interp PTH Intact 25 Urine Color Urine Clarity Urine pH Ur Specific [place] Urine Protein Urine Glucose (UA) Urine Ketones Urine Occult Blood Urine Nitrite Urine Bilirubin Urine Urobilinogen Ur Leukocyte Esterase Urine RBC Urine WBC Ur Squamous Epith Cells Urine Bacteria Urine Casts Urine Mucus POC Glucose Discharge Plan Discharge Disposition: Home, Self-Care Condition: Fair Discharge Medications: New levothyroxine 200 mcg capsule 200 mcg PO DAILY Qty: 30 0RF cholecalciferol (vitamin D3) 125 mcg (5,000 unit) capsule 125 mcg PO DAILY Qty: 30 0RF calcitriol 0.25 mcg capsule 0.25 mcg PO BID Qty: 60 0RF Continued bupropion HCl 150 mg tablet extended release 24 hr 450 mg PO DAILY clonazepam 0.5 mg tablet 0.5 mg PO TID dapagliflozin propanediol [Farxiga] 10 mg tablet 10 mg PO DAILY lisinopril-hydrochlorothiazide 10-12.5 mg tablet 1 tab PO DAILY venlafaxine 75 mg capsule,extended release 24hr 75 mg PO DAILY Trintellix 20 mg tablet 20 mg PO DAILY olanzapine 2.5 mg tablet 2.5 mg PO DAILY calcium 500 mg tablet 1,500 mg PO BID bmisldrumu-xjizpycubodsc-orvt 50-325-40 mg tablet 1 tab PO Q6H PRN (Reason: migraine headache) quetiapine 25 mg tablet 25 mg PO .qhs Patient Comments: 1-2 tabs qhs Mounjaro 5 mg/0.5 mL pen injector 5 mg SUBCUT .once per week Rx Instructions: One injection every seven days Discontinued levothyroxine 175 mcg tablet 175 mcg PO DAILY Activity: increase activity as tolerated Diet: advance to your usual diet Print Language: Bangladeshi Patient Instructions: Hypocalcemia (DC) Activity Restrictions/Additional Instructions: - Recommend referral to Endocrinology for TSH abnormalities - Repeat BMP as outpatient recommended Forms: Portal Instructions Follow Up Appointments: Follow up with Dr Rodriguez June 15 at 11:20 AM Discharge Date/Time: 06/10/23 11:35
--- NOTE | 2023-06-10 11:23 | CM.NOTE ---
Rounds made with Dr. Clark, discussed with pt discharge to home today and importance of f/u with primary care doctor.
--- NOTE | 2023-06-10 11:41 | PC.NURSE ---
iv discontinued, tele taken off pt. discharge instructions explained, pt denies questions. taken to exit via wheelchair, discharged to private vehicle.
[2023-06-10 15:08] LABS: Calcium, Ionized, Serum 4.2 mg/dL (4.5-5.6)
--- NOTE | 2023-06-11 14:58 | CM.DCFOLLOWU ---
1st attempt discharge follow up call, no answer 06/11/23
--- NOTE | 2023-06-12 14:33 | CM.DCFOLLOWU ---
2nd attempt discharge follow up call made, no answer 06/12/23
--- NOTE | 2023-06-13 10:20 | CM.DCFOLLOWU ---
3rd attempt discharge follow up call made on 06/13/23, no answer 3 attempts made, no answer each time.
== END 2023-06-10 11:35 | disposition home or self-care (01) ==
LOC: ER 11:41 → ICU 14:38
PROVIDERS: Nurse Practitioner; Admitting Provider Family Medicine; Emergency Provider Emergency Medicine; PCP Family Medicine; Visit Provider Family Medicine
DX: E83.51 Hypocalcemia (principal); E89.0 Postprocedural hypothyroidism; I10 Essential (primary) hypertension; E11.9 Type 2 diabetes mellitus without complications; R94.6 Abnormal results of thyroid function studies; Z85.850 Personal history of malignant neoplasm of thyroid; Z79.899 Other long term (current) drug therapy; Z79.890 Hormone replacement therapy; F32.A Depression, unspecified; F41.9 Anxiety disorder, unspecified; Z98.84 Bariatric surgery status; Z79.85 Long-term (current) use of injectable non-insulin antidiabetic drugs
CPT/HCPCS: 36415; 80048; 80053; 81001; 82306; 82330; 82948; 83735; 83970; 84100; 84439; 84443; 84484; 85025; 87086; 93005; 96365; 96366; 99285; G0378